=== PATIENT | male | born 1940 | race Caucasian/White ===

== ENCOUNTER 2017-12-12 06:48 | Inpatient (IN) | payer MEDICARE, OTHER ==
[2017-12-12] MEDS: ASPIRIN 325 MG TAB PO (07:38)
[2017-12-12 07:49] LABS: ADD MAN DIFF? NO
[2017-12-12 07:50] LABS: ABNORMAL IP MESSAGE 1; BASOPHILS % 0.1 % (0.0-2.0); EOSINOPHILS % 0.1 % (0.0-7.0); HEMATOCRIT 35.4 % (42.0-52.0); LYMPHOCYTES # 0.6 10^3/ul (0.8-2.9); LYMPHOCYTES % 7.9 % (15.0-51.0); MEAN CORPUSCULAR HEMOGLOBIN 30.6 pg (29.0-33.0); MEAN CORPUSCULAR HGB CONC 31.1 g/dl (32.0-37.0); MEAN CORPUSCULAR VOLUME 98.3 fl (82.0-101.0); MEAN PLATELET VOLUME 9.6 fl (7.4-10.4); MONOCYTE # 0.5 10^3/ul (0.3-0.9); MONOCYTES % 7.5 % (0.0-11.0); PLATELET COUNT 217 10^3/UL (140-415); POSITIVE DIFF @See below; RED CELL DISTRIBUTION WIDTH 20.2 % (11.5-14.5)
[2017-12-12 07:50] LABS: WHITE BLOOD COUNT 7.1 10^3/ul (4.8-10.8)
[2017-12-12] MEDS: ALBUTEROL 0.5% (NEB) 2.5 MG/0.5 ML AMP NEB (07:51)
[2017-12-12] MEDS: IPRATROPIUM (NEB) 0.5 MG/2.5 ML AMP NEB (07:51)
[2017-12-12 08:10] LABS: INR 1.14; PARTIAL THROMBOPLASTIN TIME 37.4 Sec (25.0-35.0); PROTIME 14.8 Sec (11.9-14.9); PT RATIO 1.2
[2017-12-12 08:11] LABS: ALANINE AMINOTRANSFERASE 31 IU/L (13-69); ALBUMIN 3.3 g/dl (3.3-4.9); ALKALINE PHOSPHATASE 82 IU/L (42-121); ANION GAP 14 (8-16); ASPARTATE AMINO TRANSFERASE 39 IU/L (15-46); BILIRUBIN,INDIRECT 0.4 mg/dl (0-1.1); BILIRUBIN,TOTAL 0.4 mg/dl (0.2-1.3); BLOOD UREA NITROGEN 19 mg/dl (7-20); CARBON DIOXIDE 31 mmol/L (21-31); CHLORIDE 108 mmol/L (97-110); CREATINE KINASE 47 IU/L (23-200); CREATININE 0.93 mg/dl (0.61-1.24); GLUCOSE 120 mg/dl (70-220); SODIUM 149 mmol/L (135-144); TOTAL PROTEIN 6.6 g/dl (6.1-8.1)
[2017-12-12 08:23] LABS: B-TYPE NATRIURETIC PEPTIDE 5350 PG/ML (0-450); CK INDEX 1.9
[2017-12-12 08:49] LABS: CK-MB 0.88 ng/ml (0.0-2.4); TROPONIN-I < 0.012 ng/ml (0.00-0.12)
[2017-12-12] MEDS ORDERED: ONDANSETRON 4 MG INJ IV (12:00)
[2017-12-12] MEDS ORDERED: ACETAMINOPHEN 325 MG TAB PO ×2 (12:00→15:00)
[2017-12-12] MEDS: FUROSEMIDE 40 MG INJ IV (12:04)
[2017-12-12] MEDS: METHYLPREDNISOLONE 125 MG INJ IV (13:09)
[2017-12-12 14:49] LABS: HDL CHOLESTEROL 37 mg/dl (31-75); LDL CHOLESTEROL,CALCULATED 64 mg/dl; TRIGLYCERIDES 66 mg/dl (0-149)
[2017-12-12 14:49] LABS: CHOLESTEROL 114 mg/dl (100-200)
[2017-12-12] MEDS ORDERED: FUROSEMIDE 20 MG TAB PO (15:00)
[2017-12-12] MEDS ORDERED: MAGNESIUM HYDROXIDE 30ML CUP PO (15:00)
[2017-12-12] MEDS ORDERED: POLYETHYLENE GLYCOL 17 GM PACKET PO (15:00)
[2017-12-12] MEDS ORDERED: ALBUTEROL HFA 8 GM INHALER INH (15:00)
[2017-12-12] MEDS ORDERED: BISACODYL 10 MG SUPP PR (15:00)
[2017-12-12] MEDS ORDERED: MINERAL OIL 133 ML ENEMA PR (15:00)
[2017-12-12] MEDS ORDERED: NITROGLYCERIN (SL) 0.4 MG TAB SL (16:30)
[2017-12-12] MEDS: CEFEPIME 1GM/50 ML (PMX) 50 ML IVPB ×2 (18:09→21:00)
[2017-12-12] MEDS: METHYLPREDNISOLONE 40 MG INJ IV ×2 (18:09→21:14)
[2017-12-12] MEDS: hydrALAzine 20 MG INJ IV (18:10)
[2017-12-12 18:34] LABS: TROPONIN-I < 0.012 ng/ml (0.00-0.12)
[2017-12-12] MEDS: oxyCODONE 5 MG TAB PO (19:04)
[2017-12-12] MEDS: ALBUTEROL 0.083% (NEB) 2.5 MG/3 ML AMP HHN (19:20)
[2017-12-12] MEDS: METOPROLOL 25 MG TAB PO (20:53)
[2017-12-12] MEDS: TAMSULOSIN (SR) 0.4 MG CAP PO (20:54)
[2017-12-12] MEDS: GABAPENTIN 300 MG CAP PO (21:14)
[2017-12-13 00:59] LABS: TROPONIN-I < 0.012 ng/ml (0.00-0.12)
[2017-12-13] MEDS: ALBUTEROL 0.083% (NEB) 2.5 MG/3 ML AMP HHN ×4 (03:11→20:01)
[2017-12-13] MEDS: oxyCODONE 5 MG TAB PO ×3 (03:16→22:52)
[2017-12-13 03:19] LABS: ALANINE AMINOTRANSFERASE 41 IU/L (13-69); ALBUMIN 4.3 g/dl (3.3-4.9); ALBUMIN/GLOBULIN RATIO 1.53; ALKALINE PHOSPHATASE 123 IU/L (42-121); ANION GAP 18 (8-16); ASPARTATE AMINO TRANSFERASE 28 IU/L (15-46); BILIRUBIN,INDIRECT 0.6 mg/dl (0-1.1); BILIRUBIN,TOTAL 0.6 mg/dl (0.2-1.3); BLOOD UREA NITROGEN 13 mg/dl (7-20); CALCIUM 9.7 mg/dl (8.4-10.2); CARBON DIOXIDE 26 mmol/L (21-31); CHLORIDE 98 mmol/L (97-110); CREATININE 0.79 mg/dl (0.61-1.24); GLUCOSE 203 mg/dl (70-220); POTASSIUM 4.2 mmol/L (3.5-5.1); SODIUM 138 mmol/L (135-144); TOTAL PROTEIN 7.1 g/dl (6.1-8.1)
[2017-12-13] MEDS: hydrALAzine 20 MG INJ IV ×3 (04:22→23:16)
[2017-12-13] MEDS ORDERED: PENDING SANTYL ORDER FOR WOUND CARE XX (05:30)
[2017-12-13 08:21] LABS: CHOLESTEROL 112 mg/dl (100-200)
[2017-12-13 08:21] LABS: CHOL/HDL RATIO 2.6 RATIO; HDL CHOLESTEROL 42 mg/dl (31-75); LDL CHOLESTEROL,CALCULATED 58 mg/dl; TRIGLYCERIDES 62 mg/dl (0-149)
[2017-12-13] MEDS: METHYLPREDNISOLONE 40 MG INJ IV ×2 (08:33→21:03)
[2017-12-13] MEDS: FUROSEMIDE 40 MG INJ IV (08:34)
[2017-12-13] MEDS: CLOPIDOGREL 75 MG TAB PO (08:34)
[2017-12-13] MEDS: FINASTERIDE 5 MG TAB PO (08:34)
[2017-12-13] MEDS: ASCORBIC ACID 500 MG TAB PO (08:34)
[2017-12-13] MEDS: SENNA TAB PO (08:34)
[2017-12-13] MEDS: CEFEPIME 1GM/50 ML (PMX) 50 ML IVPB ×2 (08:35→21:03)
[2017-12-13] MEDS: ASPIRIN 81 MG TAB PO (08:35)
[2017-12-13] MEDS: METOPROLOL 25 MG TAB PO ×2 (08:35→21:05)
[2017-12-13 08:46] LABS: TROPONIN-I < 0.012 ng/ml (0.00-0.12)
[2017-12-13] MEDS: TIOTROPIUM 18 MCG CAPSULE INHA DEV INH (10:55)
[2017-12-13] MEDS: FLUTICASONE 0.05% 16 GM NAS SPRAY NASAL (10:55)
[2017-12-13 17:43] LABS: ADD MAN DIFF? NO
[2017-12-13 17:47] LABS: ABNORMAL IP MESSAGE 1; HEMATOCRIT 31.4 % (42.0-52.0); LYMPHOCYTES # 0.2 10^3/ul (0.8-2.9); MEAN CORPUSCULAR HEMOGLOBIN 30.7 pg (29.0-33.0); MEAN CORPUSCULAR HGB CONC 31.8 g/dl (32.0-37.0); MEAN CORPUSCULAR VOLUME 96.3 fl (82.0-101.0); MEAN PLATELET VOLUME 9.5 fl (7.4-10.4); MONOCYTE # 0.4 10^3/ul (0.3-0.9); MONOCYTES % 5.1 % (0.0-11.0); NEUTROPHIL # 7.2 10^3/ul (1.6-7.5); NEUTROPHILS % 91.4 % (39.0-77.0); PLATELET COUNT 205 10^3/UL (140-415); POSITIVE DIFF @See below; RED BLOOD COUNT 3.26 10^6/ul (4.70-6.10); RED CELL DISTRIBUTION WIDTH 19.8 % (11.5-14.5)
[2017-12-13 17:47] LABS: WHITE BLOOD COUNT 7.9 10^3/ul (4.8-10.8)
[2017-12-13] MEDS: BENAZEPRIL 10 MG TAB PO (21:04)
[2017-12-13] MEDS: GABAPENTIN 300 MG CAP PO (21:04)
[2017-12-13] MEDS: TAMSULOSIN (SR) 0.4 MG CAP PO (21:04)
[2017-12-14] MEDS: ALBUTEROL 0.083% (NEB) 2.5 MG/3 ML AMP HHN ×4 (01:05→19:50)
[2017-12-14] MEDS: hydrALAzine 20 MG INJ IV ×4 (01:58→23:20)
[2017-12-14] MEDS: METOPROLOL 5 MG INJ IV (04:59)
[2017-12-14 08:24] LABS: ADD MAN DIFF? NO
[2017-12-14 08:31] LABS: WHITE BLOOD COUNT 11.2 10^3/ul (4.8-10.8)
[2017-12-14 08:31] LABS: ABNORMAL IP MESSAGE 1; BASOPHILS % 0.1 % (0.0-2.0); HEMATOCRIT 33.2 % (42.0-52.0); HEMOGLOBIN 10.4 g/dl (14.0-18.0); LYMPHOCYTES # 0.4 10^3/ul (0.8-2.9); LYMPHOCYTES % 3.6 % (15.0-51.0); MEAN CORPUSCULAR HEMOGLOBIN 30.7 pg (29.0-33.0); MEAN CORPUSCULAR HGB CONC 31.3 g/dl (32.0-37.0); MEAN CORPUSCULAR VOLUME 97.9 fl (82.0-101.0); MEAN PLATELET VOLUME 9.1 fl (7.4-10.4); MONOCYTE # 0.9 10^3/ul (0.3-0.9); MONOCYTES % 7.9 % (0.0-11.0); NEUTROPHIL # 9.8 10^3/ul (1.6-7.5); NEUTROPHILS % 87.5 % (39.0-77.0); PLATELET COUNT 204 10^3/UL (140-415); POSITIVE DIFF @See below; RED BLOOD COUNT 3.39 10^6/ul (4.70-6.10)
[2017-12-14] MEDS: ASCORBIC ACID 500 MG TAB PO (08:37)
[2017-12-14] MEDS: FINASTERIDE 5 MG TAB PO (08:37)
[2017-12-14] MEDS: SENNA TAB PO (08:37)
[2017-12-14] MEDS: CLOPIDOGREL 75 MG TAB PO (08:37)
[2017-12-14] MEDS: ASPIRIN 81 MG TAB PO (08:37)
[2017-12-14] MEDS: CEFEPIME 1GM/50 ML (PMX) 50 ML IVPB ×2 (08:38→20:26)
[2017-12-14] MEDS: BENAZEPRIL 10 MG TAB PO (08:41)
[2017-12-14] MEDS: TIOTROPIUM 18 MCG CAPSULE INHA DEV INH (08:41)
[2017-12-14] MEDS: METOPROLOL 25 MG TAB PO ×2 (08:41→20:28)
[2017-12-14] MEDS: METHYLPREDNISOLONE 40 MG INJ IV ×2 (08:42→20:25)
[2017-12-14] MEDS: FLUTICASONE 0.05% 16 GM NAS SPRAY NASAL (08:42)
[2017-12-14] MEDS: FUROSEMIDE 40 MG INJ IV (08:42)
[2017-12-14 09:04] LABS: ANION GAP 13 (8-16); BLOOD UREA NITROGEN 21 mg/dl (7-20); CALCIUM 9.1 mg/dl (8.4-10.2); CARBON DIOXIDE 33 mmol/L (21-31); CHLORIDE 104 mmol/L (97-110); CREATININE 0.89 mg/dl (0.61-1.24); GLUCOSE 106 mg/dl (70-220); PHOSPHORUS 3.5 mg/dl (2.5-4.9); POTASSIUM 3.1 mmol/L (3.5-5.1); SODIUM 147 mmol/L (135-144)
[2017-12-14] MEDS: LIDOCAINE 1% (MPF) 5 ML VIAL (17:36)
[2017-12-14 18:50] LABS: FLD MN% 62.8 %; FLD PMN% 37.2 %; FLD RBC 10000 /uL; FLD WBC 140 /cmm
[2017-12-14 19:09] LABS: FLUID LD 186 U/L; FLUID TOTAL PROTEIN < 2.0 g/dl; FLUID TYPE PLEURAL FLUID
[2017-12-14 19:12] LABS: FLUID GLUCOSE 127 mg/dl
[2017-12-14 19:13] LABS: FLUID TYPE PLEURAL FLUID
[2017-12-14 19:25] LABS: FLD TYPE PLEURAL
[2017-12-14 19:25] LABS: FLD CLARITY SLIGHTLY HAZY
[2017-12-14 19:26] LABS: FLD COLOR AMBER
[2017-12-14] MEDS: TAMSULOSIN (SR) 0.4 MG CAP PO (20:26)
[2017-12-14] MEDS: oxyCODONE 5 MG TAB PO (20:27)
[2017-12-14] MEDS: GABAPENTIN 300 MG CAP PO (20:28)
[2017-12-14] MEDS: BENAZEPRIL 20 MG TAB PO (20:28)
[2017-12-15] MEDS: ALBUTEROL 0.083% (NEB) 2.5 MG/3 ML AMP HHN ×4 (01:54→20:54)
[2017-12-15 08:07] LABS: ADD MAN DIFF? NO
[2017-12-15 08:14] LABS: WHITE BLOOD COUNT 10.3 10^3/ul (4.8-10.8)
[2017-12-15 08:14] LABS: ABNORMAL IP MESSAGE 1; BASOPHILS % 0.1 % (0.0-2.0); HEMATOCRIT 36.3 % (42.0-52.0); HEMOGLOBIN 11.5 g/dl (14.0-18.0); LYMPHOCYTES # 0.4 10^3/ul (0.8-2.9); LYMPHOCYTES % 3.5 % (15.0-51.0); MEAN CORPUSCULAR HEMOGLOBIN 30.4 pg (29.0-33.0); MEAN CORPUSCULAR HGB CONC 31.7 g/dl (32.0-37.0); MEAN PLATELET VOLUME 9.9 fl (7.4-10.4); MONOCYTE # 0.7 10^3/ul (0.3-0.9); MONOCYTES % 6.5 % (0.0-11.0); NEUTROPHIL # 9.2 10^3/ul (1.6-7.5); NEUTROPHILS % 89.1 % (39.0-77.0); PLATELET COUNT 191 10^3/UL (140-415); POSITIVE DIFF @See below; RED BLOOD COUNT 3.78 10^6/ul (4.70-6.10); RED CELL DISTRIBUTION WIDTH 19.7 % (11.5-14.5)
[2017-12-15 08:31] LABS: BLOOD UREA NITROGEN 29 mg/dl (7-20); CALCIUM 8.4 mg/dl (8.4-10.2); CARBON DIOXIDE 34 mmol/L (21-31); CHLORIDE 102 mmol/L (97-110); CREATININE 1.01 mg/dl (0.61-1.24); GLUCOSE 108 mg/dl (70-220); SODIUM 144 mmol/L (135-144)
[2017-12-15] MEDS: FLUTICASONE 0.05% 16 GM NAS SPRAY NASAL (08:46)
[2017-12-15] MEDS: ASPIRIN 81 MG TAB PO (08:47)
[2017-12-15] MEDS: CLOPIDOGREL 75 MG TAB PO (08:47)
[2017-12-15] MEDS: SENNA TAB PO (08:47)
[2017-12-15] MEDS: ASCORBIC ACID 500 MG TAB PO (08:47)
[2017-12-15] MEDS: FINASTERIDE 5 MG TAB PO (08:47)
[2017-12-15] MEDS: METHYLPREDNISOLONE 40 MG INJ IV ×2 (08:47→20:30)
[2017-12-15] MEDS: TIOTROPIUM 18 MCG CAPSULE INHA DEV INH (08:47)
[2017-12-15] MEDS: FUROSEMIDE 40 MG INJ IV (08:48)
[2017-12-15] MEDS: BENAZEPRIL 20 MG TAB PO ×2 (08:48→20:28)
[2017-12-15] MEDS: METOPROLOL 25 MG TAB PO ×2 (08:48→20:29)
[2017-12-15] MEDS: CEFEPIME 1GM/50 ML (PMX) 50 ML IVPB ×2 (09:04→20:30)
[2017-12-15 09:37] LABS: ANION GAP 11 (8-16)
[2017-12-15 09:38] LABS: POTASSIUM 3.1 mmol/L (3.5-5.1)
[2017-12-15] MEDS: hydrALAzine 20 MG INJ IV (13:08)
[2017-12-15] MEDS: POTASSIUM CHLORIDE 20 MEQ POWDER FOR ORAL SOLN PO (18:24)
[2017-12-15] MEDS: TAMSULOSIN (SR) 0.4 MG CAP PO (20:28)
[2017-12-15] MEDS: GABAPENTIN 300 MG CAP PO (20:28)
[2017-12-15] MEDS: oxyCODONE 5 MG TAB PO (20:42)
[2017-12-16] MEDS: ALBUTEROL 0.083% (NEB) 2.5 MG/3 ML AMP HHN ×4 (02:02→22:20)
[2017-12-16] MEDS: CEFEPIME 1GM/50 ML (PMX) 50 ML IVPB ×2 (08:10→20:38)
[2017-12-16 08:11] LABS: ADD MAN DIFF? NO
[2017-12-16] MEDS: METHYLPREDNISOLONE 40 MG INJ IV (08:11)
[2017-12-16 08:12] LABS: AADO2 Arterial 318.8 mmHg (7.0-24.0); Allen Test ACCEPTAB; Arterial Base Excess 8.7 mmol/L (-3.0-3); Arterial Blood Gas Oxygen Sat 88.3 mmHG (95.0-100.0); Arterial COHb 0.5 % (0.0-3.0); Arterial Fraction of Oxyhgb 87.6 % (93.0-99.0); Arterial MetHb 0.3 % (0.0-1.5); Arterial Total Hemglobin 11.7 g/dl (12.0-18.0); Arterial pCO2 50.1 mmhg (35-45); MODE HFNC; Site Right Radial
[2017-12-16] MEDS: ASPIRIN 81 MG TAB PO (08:12)
[2017-12-16] MEDS: METOPROLOL 25 MG TAB PO (08:12)
[2017-12-16] MEDS: ASCORBIC ACID 500 MG TAB PO (08:12)
[2017-12-16] MEDS: FINASTERIDE 5 MG TAB PO (08:12)
[2017-12-16] MEDS: FUROSEMIDE 40 MG INJ IV (08:12)
[2017-12-16] MEDS: SENNA TAB PO (08:12)
[2017-12-16] MEDS: CLOPIDOGREL 75 MG TAB PO (08:12)
[2017-12-16] MEDS: TIOTROPIUM 18 MCG CAPSULE INHA DEV INH (08:12)
[2017-12-16] MEDS: BENAZEPRIL 20 MG TAB PO (08:13)
[2017-12-16] MEDS: FLUTICASONE 0.05% 16 GM NAS SPRAY NASAL (08:13)
[2017-12-16 08:23] LABS: ABNORMAL IP MESSAGE 1; HEMATOCRIT 32.7 % (42.0-52.0); HEMOGLOBIN 10.5 g/dl (14.0-18.0); LYMPHOCYTES # 0.3 10^3/ul (0.8-2.9); LYMPHOCYTES % 2.8 % (15.0-51.0); MEAN CORPUSCULAR HGB CONC 32.1 g/dl (32.0-37.0); MEAN CORPUSCULAR VOLUME 96.5 fl (82.0-101.0); MEAN PLATELET VOLUME 9.6 fl (7.4-10.4); MONOCYTE # 0.6 10^3/ul (0.3-0.9); MONOCYTES % 5.9 % (0.0-11.0); NEUTROPHIL # 9.2 10^3/ul (1.6-7.5); NEUTROPHILS % 90.7 % (39.0-77.0); PLATELET COUNT 142 10^3/UL (140-415); POSITIVE DIFF @See below; RED BLOOD COUNT 3.39 10^6/ul (4.70-6.10); RED CELL DISTRIBUTION WIDTH 19.2 % (11.5-14.5)
[2017-12-16 08:23] LABS: WHITE BLOOD COUNT 10.2 10^3/ul (4.8-10.8)
[2017-12-16 08:55] LABS: ANION GAP 13 (8-16); BLOOD UREA NITROGEN 34 mg/dl (7-20); CALCIUM 8.4 mg/dl (8.4-10.2); CARBON DIOXIDE 33 mmol/L (21-31); CHLORIDE 102 mmol/L (97-110); CREATININE 1.05 mg/dl (0.61-1.24); GLUCOSE 131 mg/dl (70-220); MAGNESIUM 2.1 mg/dl (1.7-2.5); PHOSPHORUS 2.5 mg/dl (2.5-4.9); POTASSIUM 3.5 mmol/L (3.5-5.1); SODIUM 144 mmol/L (135-144)
[2017-12-16] MEDS: hydrALAzine 20 MG INJ IV ×2 (11:29→17:43)
[2017-12-16] MEDS: TAMSULOSIN (SR) 0.4 MG CAP PO (20:38)
[2017-12-16] MEDS: BENAZEPRIL 40 MG TAB PO (20:38)
[2017-12-16] MEDS: METOPROLOL 50 MG TAB PO (20:39)
[2017-12-16] MEDS: GABAPENTIN 300 MG CAP PO (20:39)
[2017-12-16] MEDS ORDERED: METOPROLOL 25 MG TAB PO (21:00)
[2017-12-16] MEDS ORDERED: BENAZEPRIL 20 MG TAB PO (21:00)
[2017-12-17] MEDS: ALBUTEROL 0.083% (NEB) 2.5 MG/3 ML AMP HHN ×4 (01:09→19:48)
[2017-12-17] MEDS: oxyCODONE 5 MG TAB PO ×2 (03:52→23:38)
[2017-12-17] MEDS: hydrALAzine 20 MG INJ IV (03:57)
[2017-12-17 08:18] LABS: ADD MAN DIFF? NO
[2017-12-17 08:20] LABS: WHITE BLOOD COUNT 12.7 10^3/ul (4.8-10.8)
[2017-12-17 08:20] LABS: BASOPHILS % 0.2 % (0.0-2.0); EOSINOPHILS % 0.2 % (0.0-7.0); HEMATOCRIT 35.7 % (42.0-52.0); HEMOGLOBIN 11.3 g/dl (14.0-18.0); LYMPHOCYTES # 0.6 10^3/ul (0.8-2.9); LYMPHOCYTES % 4.9 % (15.0-51.0); MEAN CORPUSCULAR HEMOGLOBIN 30.5 pg (29.0-33.0); MEAN CORPUSCULAR HGB CONC 31.7 g/dl (32.0-37.0); MEAN CORPUSCULAR VOLUME 96.5 fl (82.0-101.0); MEAN PLATELET VOLUME 9.5 fl (7.4-10.4); NEUTROPHIL # 10.9 10^3/ul (1.6-7.5); NEUTROPHILS % 85.7 % (39.0-77.0); PLATELET COUNT 130 10^3/UL (140-415); RED CELL DISTRIBUTION WIDTH 19.2 % (11.5-14.5)
[2017-12-17] MEDS: FINASTERIDE 5 MG TAB PO (08:34)
[2017-12-17] MEDS: ASCORBIC ACID 500 MG TAB PO (08:34)
[2017-12-17] MEDS: TIOTROPIUM 18 MCG CAPSULE INHA DEV INH (08:34)
[2017-12-17] MEDS: FUROSEMIDE 40 MG INJ IV (08:34)
[2017-12-17] MEDS: CLOPIDOGREL 75 MG TAB PO (08:35)
[2017-12-17] MEDS: CEFEPIME 1GM/50 ML (PMX) 50 ML IVPB ×2 (08:35→21:47)
[2017-12-17] MEDS: BENAZEPRIL 40 MG TAB PO ×2 (08:35→21:47)
[2017-12-17] MEDS: FLUTICASONE 0.05% 16 GM NAS SPRAY NASAL (08:36)
[2017-12-17] MEDS: ASPIRIN 81 MG TAB PO (08:36)
[2017-12-17] MEDS: SENNA TAB PO (08:37)
[2017-12-17 08:39] LABS: ANION GAP 11 (8-16); BLOOD UREA NITROGEN 35 mg/dl (7-20); CALCIUM 8.4 mg/dl (8.4-10.2); CARBON DIOXIDE 36 mmol/L (21-31); CHLORIDE 102 mmol/L (97-110); CREATININE 0.96 mg/dl (0.61-1.24); GLUCOSE 94 mg/dl (70-220); POTASSIUM 3.2 mmol/L (3.5-5.1); SODIUM 146 mmol/L (135-144)
[2017-12-17] MEDS: METOPROLOL 50 MG TAB PO ×2 (08:40→21:47)
[2017-12-17] MEDS: LIDOCAINE 1% (MPF) 5 ML VIAL (10:56)
[2017-12-17] MEDS ORDERED: VANCOMYCIN IV PER PHARMACY XX ×2 (11:00)
[2017-12-17] MEDS: VANCOMYCIN 1.25 GM in SOD CHLORIDE 0.9% 250 ML IVPB (12:54)
[2017-12-17] MEDS: POTASSIUM CHLORIDE (SR) 20 MEQ TAB PO (17:12)
[2017-12-17] MEDS: TAMSULOSIN (SR) 0.4 MG CAP PO (21:47)
[2017-12-17] MEDS: GABAPENTIN 300 MG CAP PO (21:48)
[2017-12-18] MEDS: ALBUTEROL 0.083% (NEB) 2.5 MG/3 ML AMP HHN ×4 (01:52→19:56)
[2017-12-18 06:39] LABS: ADD MAN DIFF? NO
[2017-12-18 06:41] LABS: ABNORMAL IP MESSAGE 1; BASOPHILS % 0.1 % (0.0-2.0); EOSINOPHILS % 0.5 % (0.0-7.0); HEMATOCRIT 31.5 % (42.0-52.0); HEMOGLOBIN 10.1 g/dl (14.0-18.0); LYMPHOCYTES # 0.6 10^3/ul (0.8-2.9); LYMPHOCYTES % 6.3 % (15.0-51.0); MEAN CORPUSCULAR HEMOGLOBIN 31.2 pg (29.0-33.0); MEAN CORPUSCULAR HGB CONC 32.1 g/dl (32.0-37.0); MEAN CORPUSCULAR VOLUME 97.2 fl (82.0-101.0); MEAN PLATELET VOLUME 9.3 fl (7.4-10.4); MONOCYTE # 0.7 10^3/ul (0.3-0.9); MONOCYTES % 8.1 % (0.0-11.0); NEUTROPHIL # 7.4 10^3/ul (1.6-7.5); PLATELET COUNT 106 10^3/UL (140-415); POSITIVE DIFF @See below; RED BLOOD COUNT 3.24 10^6/ul (4.70-6.10); RED CELL DISTRIBUTION WIDTH 18.8 % (11.5-14.5)
[2017-12-18 06:41] LABS: WHITE BLOOD COUNT 8.8 10^3/ul (4.8-10.8)
[2017-12-18 07:09] LABS: ANION GAP 10 (8-16); BLOOD UREA NITROGEN 29 mg/dl (7-20); CALCIUM 7.8 mg/dl (8.4-10.2); CARBON DIOXIDE 38 mmol/L (21-31); CHLORIDE 101 mmol/L (97-110); CREATININE 0.86 mg/dl (0.61-1.24); GLUCOSE 97 mg/dl (70-220); PHOSPHORUS 2.1 mg/dl (2.5-4.9); SODIUM 146 mmol/L (135-144)
[2017-12-18 07:14] LABS: POTASSIUM 2.9 mmol/L (3.5-5.1)
[2017-12-18 07:58] LABS: AADO2 Arterial 277.5 mmHg (7.0-24.0); Allen Test ACCEPTAB; Arterial Base Excess 7.7 mmol/L (-3.0-3); Arterial COHb 0.5 % (0.0-3.0); Arterial Fraction of Oxyhgb 91.3 % (93.0-99.0); Arterial HCO3 32.6 mmol/L (22.0-26.0); Arterial MetHb 0.3 % (0.0-1.5); Arterial Total Hemglobin 11.4 g/dl (12.0-18.0); Arterial pCO2 47.5 mmhg (35-45); MODE HFNC; Site Right Radial
[2017-12-18] MEDS: FINASTERIDE 5 MG TAB PO (08:30)
[2017-12-18] MEDS: CEFEPIME 1GM/50 ML (PMX) 50 ML IVPB ×2 (08:30→23:41)
[2017-12-18] MEDS: SENNA TAB PO (08:31)
[2017-12-18] MEDS: ASPIRIN 81 MG TAB PO (08:31)
[2017-12-18] MEDS: POTASSIUM CHLORIDE (SR) 10 MEQ TAB PO ×2 (08:31→11:35)
[2017-12-18] MEDS: CLOPIDOGREL 75 MG TAB PO (08:31)
[2017-12-18] MEDS: METOPROLOL 50 MG TAB PO ×2 (08:32→21:00)
[2017-12-18] MEDS: BENAZEPRIL 40 MG TAB PO ×2 (08:32→23:45)
[2017-12-18] MEDS: NIFEdipine (XL) 30 MG TAB PO (08:33)
[2017-12-18] MEDS: ASCORBIC ACID 500 MG TAB PO (08:33)
[2017-12-18] MEDS: FUROSEMIDE 40 MG INJ IV (08:33)
[2017-12-18] MEDS: FLUTICASONE 0.05% 16 GM NAS SPRAY NASAL (08:34)
[2017-12-18] MEDS: TIOTROPIUM 18 MCG CAPSULE INHA DEV INH ×2 (09:00→11:36)
[2017-12-18] MEDS: VANCOMYCIN 1.25 GM in SOD CHLORIDE 0.9% 250 ML IVPB (12:11)
[2017-12-18] MEDS ORDERED: POTASSIUM CHLORIDE 50 ML IVPB (15:30)
[2017-12-18] MEDS: GABAPENTIN 300 MG CAP PO (23:40)
[2017-12-18] MEDS: TAMSULOSIN (SR) 0.4 MG CAP PO (23:41)
[2017-12-18] MEDS: oxyCODONE 5 MG TAB PO (23:42)
[2017-12-19] MEDS: ALBUTEROL 0.083% (NEB) 2.5 MG/3 ML AMP HHN ×4 (01:58→20:28)
[2017-12-19 06:59] LABS: ADD MAN DIFF? NO
[2017-12-19 07:03] LABS: WHITE BLOOD COUNT 9.2 10^3/ul (4.8-10.8)
[2017-12-19 07:03] LABS: BASOPHILS % 0.1 % (0.0-2.0); EOSINOPHILS # 0.1 10^3/ul (0.0-0.5); HEMATOCRIT 30.9 % (42.0-52.0); HEMOGLOBIN 9.6 g/dl (14.0-18.0); LYMPHOCYTES # 0.7 10^3/ul (0.8-2.9); LYMPHOCYTES % 7.8 % (15.0-51.0); MEAN CORPUSCULAR HEMOGLOBIN 30.7 pg (29.0-33.0); MEAN CORPUSCULAR HGB CONC 31.1 g/dl (32.0-37.0); MEAN CORPUSCULAR VOLUME 98.7 fl (82.0-101.0); MEAN PLATELET VOLUME 9.7 fl (7.4-10.4); MONOCYTE # 0.8 10^3/ul (0.3-0.9); MONOCYTES % 8.6 % (0.0-11.0); NEUTROPHIL # 7.5 10^3/ul (1.6-7.5); NEUTROPHILS % 81.7 % (39.0-77.0); PLATELET COUNT 104 10^3/UL (140-415); RED BLOOD COUNT 3.13 10^6/ul (4.70-6.10); RED CELL DISTRIBUTION WIDTH 18.8 % (11.5-14.5)
[2017-12-19 07:23] LABS: POTASSIUM 3.5 mmol/L (3.5-5.1)
[2017-12-19 07:31] LABS: ANION GAP 11 (8-16); BLOOD UREA NITROGEN 28 mg/dl (7-20); CALCIUM 7.7 mg/dl (8.4-10.2); CARBON DIOXIDE 34 mmol/L (21-31); CHLORIDE 103 mmol/L (97-110); CREATININE 0.92 mg/dl (0.61-1.24); GLUCOSE 108 mg/dl (70-220); POTASSIUM 3.4 mmol/L (3.5-5.1); SODIUM 145 mmol/L (135-144)
[2017-12-19] MEDS: BENAZEPRIL 40 MG TAB PO ×2 (08:38→21:03)
[2017-12-19] MEDS: NIFEdipine (XL) 30 MG TAB PO (08:39)
[2017-12-19] MEDS: CLOPIDOGREL 75 MG TAB PO (08:40)
[2017-12-19] MEDS: ASCORBIC ACID 500 MG TAB PO (08:40)
[2017-12-19] MEDS: SENNA TAB PO (08:40)
[2017-12-19] MEDS: ASPIRIN 81 MG TAB PO (08:40)
[2017-12-19] MEDS: FINASTERIDE 5 MG TAB PO (08:40)
[2017-12-19] MEDS: METOPROLOL 50 MG TAB PO ×2 (08:41→21:00)
[2017-12-19] MEDS: TIOTROPIUM 18 MCG CAPSULE INHA DEV INH (08:41)
[2017-12-19] MEDS: CEFEPIME 1GM/50 ML (PMX) 50 ML IVPB ×2 (08:42→21:03)
[2017-12-19] MEDS: FLUTICASONE 0.05% 16 GM NAS SPRAY NASAL (08:42)
[2017-12-19] MEDS: FUROSEMIDE 40 MG INJ IV (08:43)
[2017-12-19] MEDS: VANCOMYCIN 1.25 GM in SOD CHLORIDE 0.9% 250 ML IVPB (13:40)
[2017-12-19] MEDS: TAMSULOSIN (SR) 0.4 MG CAP PO (21:02)
[2017-12-19] MEDS: GABAPENTIN 300 MG CAP PO (21:02)
[2017-12-19] MEDS: oxyCODONE 5 MG TAB PO (21:10)
[2017-12-19] MEDS: POTASSIUM CHLORIDE 100 ML IVPB (23:40)
[2017-12-20] MEDS: ALBUTEROL 0.083% (NEB) 2.5 MG/3 ML AMP HHN ×4 (01:45→20:34)
[2017-12-20 06:26] LABS: POTASSIUM 3.4 mmol/L (3.5-5.1)
[2017-12-20] MEDS: TIOTROPIUM 18 MCG CAPSULE INHA DEV INH (08:23)
[2017-12-20] MEDS: ASCORBIC ACID 500 MG TAB PO (08:24)
[2017-12-20] MEDS: CEFEPIME 1GM/50 ML (PMX) 50 ML IVPB ×2 (08:24→21:28)
[2017-12-20] MEDS: FLUTICASONE 0.05% 16 GM NAS SPRAY NASAL (08:24)
[2017-12-20] MEDS: FINASTERIDE 5 MG TAB PO (08:24)
[2017-12-20] MEDS: SENNA TAB PO (08:25)
[2017-12-20] MEDS: CLOPIDOGREL 75 MG TAB PO (08:25)
[2017-12-20] MEDS: ASPIRIN 81 MG TAB PO (08:25)
[2017-12-20] MEDS: NIFEdipine (XL) 30 MG TAB PO (08:26)
[2017-12-20] MEDS: METOPROLOL 50 MG TAB PO ×2 (08:26→21:29)
[2017-12-20] MEDS: BENAZEPRIL 40 MG TAB PO ×2 (08:26→21:29)
[2017-12-20] MEDS: FUROSEMIDE 40 MG INJ IV (08:27)
[2017-12-20 12:50] LABS: VANCOMYCIN,TROUGH 16.6 ug/ml (10.0-20.0)
[2017-12-20] MEDS: VANCOMYCIN 1.25 GM in SOD CHLORIDE 0.9% 250 ML IVPB (13:31)
[2017-12-20] MEDS: GABAPENTIN 300 MG CAP PO (21:28)
[2017-12-20] MEDS: TAMSULOSIN (SR) 0.4 MG CAP PO (21:28)
[2017-12-20] MEDS: oxyCODONE 5 MG TAB PO (23:06)
[2017-12-21] MEDS: ALBUTEROL 0.083% (NEB) 2.5 MG/3 ML AMP HHN ×4 (02:02→20:54)
[2017-12-21] MEDS: POTASSIUM CHLORIDE 100 ML IVPB (02:58)
[2017-12-21 08:58] LABS: ADD MAN DIFF? NO
[2017-12-21 09:05] LABS: ABNORMAL IP MESSAGE 1; BASOPHILS % 0.1 % (0.0-2.0); EOSINOPHILS # 0.1 10^3/ul (0.0-0.5); EOSINOPHILS % 1.3 % (0.0-7.0); HEMATOCRIT 29.8 % (42.0-52.0); HEMOGLOBIN 9.2 g/dl (14.0-18.0); LYMPHOCYTES # 0.7 10^3/ul (0.8-2.9); MEAN CORPUSCULAR HEMOGLOBIN 30.6 pg (29.0-33.0); MEAN CORPUSCULAR HGB CONC 30.9 g/dl (32.0-37.0); MEAN PLATELET VOLUME 10.1 fl (7.4-10.4); MONOCYTE # 0.9 10^3/ul (0.3-0.9); MONOCYTES % 11.3 % (0.0-11.0); NEUTROPHILS % 77.5 % (39.0-77.0); PLATELET COUNT 99 10^3/UL (140-415); POSITIVE DIFF @See below; RED BLOOD COUNT 3.01 10^6/ul (4.70-6.10); RED CELL DISTRIBUTION WIDTH 18.6 % (11.5-14.5)
[2017-12-21 09:05] LABS: WHITE BLOOD COUNT 7.7 10^3/ul (4.8-10.8)
[2017-12-21] MEDS: TIOTROPIUM 18 MCG CAPSULE INHA DEV INH (09:15)
[2017-12-21] MEDS: CEFEPIME 1GM/50 ML (PMX) 50 ML IVPB ×2 (09:15→20:18)
[2017-12-21] MEDS: SENNA TAB PO (09:16)
[2017-12-21] MEDS: FUROSEMIDE 40 MG INJ IV (09:16)
[2017-12-21] MEDS: METOPROLOL 50 MG TAB PO ×2 (09:17→20:19)
[2017-12-21] MEDS: ASCORBIC ACID 500 MG TAB PO (09:17)
[2017-12-21] MEDS: BENAZEPRIL 40 MG TAB PO ×2 (09:17→20:19)
[2017-12-21] MEDS: NIFEdipine (XL) 30 MG TAB PO (09:18)
[2017-12-21] MEDS: CLOPIDOGREL 75 MG TAB PO (09:18)
[2017-12-21] MEDS: FINASTERIDE 5 MG TAB PO (09:18)
[2017-12-21] MEDS: ASPIRIN 81 MG TAB PO (09:18)
[2017-12-21] MEDS: FLUTICASONE 0.05% 16 GM NAS SPRAY NASAL (09:19)
[2017-12-21 09:23] LABS: ANION GAP 12 (8-16); BLOOD UREA NITROGEN 23 mg/dl (7-20); CALCIUM 7.7 mg/dl (8.4-10.2); CARBON DIOXIDE 32 mmol/L (21-31); CHLORIDE 106 mmol/L (97-110); CREATININE 0.98 mg/dl (0.61-1.24); GLUCOSE 88 mg/dl (70-220); POTASSIUM 3.5 mmol/L (3.5-5.1); SODIUM 146 mmol/L (135-144)
[2017-12-21] MEDS: VANCOMYCIN 1 GM 250 ML IVPB (12:31)
[2017-12-21] MEDS: GABAPENTIN 300 MG CAP PO (20:19)
[2017-12-21] MEDS: TAMSULOSIN (SR) 0.4 MG CAP PO (20:19)
[2017-12-21] MEDS: DOCUSATE SODIUM 100 MG CAP PO (20:20)
[2017-12-21] MEDS: oxyCODONE 5 MG TAB PO (21:35)
[2017-12-22] MEDS: ALBUTEROL 0.083% (NEB) 2.5 MG/3 ML AMP HHN ×3 (01:15→13:54)
[2017-12-22] MEDS: oxyCODONE 5 MG TAB PO (04:18)
[2017-12-22 08:18] LABS: POTASSIUM 3.8 mmol/L (3.5-5.1)
[2017-12-22] MEDS: ASPIRIN 81 MG TAB PO (08:33)
[2017-12-22] MEDS: CLOPIDOGREL 75 MG TAB PO (08:36)
[2017-12-22] MEDS: FINASTERIDE 5 MG TAB PO (08:37)
[2017-12-22] MEDS: BENAZEPRIL 40 MG TAB PO (08:41)
[2017-12-22] MEDS: NIFEdipine (XL) 30 MG TAB PO (08:41)
[2017-12-22] MEDS: ASCORBIC ACID 500 MG TAB PO (08:42)
[2017-12-22] MEDS: SENNA TAB PO (08:42)
[2017-12-22] MEDS: TIOTROPIUM 18 MCG CAPSULE INHA DEV INH (08:43)
[2017-12-22] MEDS: CEFEPIME 1GM/50 ML (PMX) 50 ML IVPB (08:43)
[2017-12-22] MEDS: FLUTICASONE 0.05% 16 GM NAS SPRAY NASAL (08:46)
[2017-12-22] MEDS: METOPROLOL 50 MG TAB PO (08:52)
[2017-12-22] MEDS: FUROSEMIDE 40 MG INJ IV (08:58)
[2017-12-22] MEDS: VANCOMYCIN 1 GM 250 ML IVPB (13:46)
== END 2017-12-22 18:00 | DRG 186 ==
LOC: TEL 11:51 → E/R 06:48
PROC: 0W9B3ZX Drainage of Left Pleural Cavity, Percutaneous Approach, Diagnostic (ICD-10-PCS; principal; 2017-12-14)
PROC: 0W9B3ZZ Drainage of Left Pleural Cavity, Percutaneous Approach (ICD-10-PCS; 2017-12-17)
DX: J90 Pleural effusion, not elsewhere classified (principal); J96.21 Acute and chronic respiratory failure with hypoxia; I50.9 Heart failure, unspecified; I11.0 Hypertensive heart disease with heart failure; J18.9 Pneumonia, unspecified organism; I48.91 Unspecified atrial fibrillation; D64.9 Anemia, unspecified; J96.22 Acute and chronic respiratory failure with hypercapnia; J44.1 Chronic obstructive pulmonary disease with (acute) exacerbation; N40.0 Benign prostatic hyperplasia without lower urinary tract symptoms; Z66 Do not resuscitate; Z87.891 Personal history of nicotine dependence; Z85.038 Personal history of other malignant neoplasm of large intestine; Z85.118 Personal history of other malignant neoplasm of bronchus and lung; Z92.3 Personal history of irradiation; Z92.21 Personal history of antineoplastic chemotherapy; Z79.02 Long term (current) use of antithrombotics/antiplatelets; Z79.82 Long term (current) use of aspirin
CPT/HCPCS: 32555; 36600; 71045; 76942; 80048; 80053; 80061; 80202; 82550; 82553; 82803; 82945; 83615; 83735; 83880; 84100; 84132; 84157; 84443; 84484; 85025; 85610; 85730; 87070; 87081; 87102; 87116; 88104; 88305; 88313; 89051; 93005; 93306; 94640; 94644; 94660; 94664; 96365; 96366; 96375; 96376; 99285-25

== ENCOUNTER 2018-01-09 16:28 | Inpatient (IN) | payer MEDICARE, OTHER ==
[2018-01-09 17:23] LABS: WHITE BLOOD COUNT 6.3 10^3/ul (4.8-10.8)
[2018-01-09 17:23] LABS: ABNORMAL IP MESSAGE 1; HEMATOCRIT 33.6 % (42.0-52.0); HEMOGLOBIN 10.4 g/dl (14.0-18.0); MEAN CORPUSCULAR HEMOGLOBIN 29.8 pg (29.0-33.0); MEAN CORPUSCULAR VOLUME 96.3 fl (82.0-101.0); MEAN PLATELET VOLUME 10.4 fl (7.4-10.4); PLATELET COUNT 214 10^3/UL (140-415); POSITIVE DIFF @See below; RED BLOOD COUNT 3.49 10^6/ul (4.70-6.10); RED CELL DISTRIBUTION WIDTH 17.2 % (11.5-14.5)
[2018-01-09] MEDS: METHYLPREDNISOLONE 125 MG INJ IV ×2 (17:29→23:26)
[2018-01-09] MEDS: CEFEPIME 2GM/50 ML (PMX) 50 ML IVPB (17:30)
[2018-01-09] MEDS: SODIUM CHLORIDE 0.9% 1L BAG IV* (17:31)
[2018-01-09 17:32] LABS: ADD MAN DIFF? YES
[2018-01-09 17:38] LABS: INR 1.31; PROTIME 16.5 Sec (11.9-14.9); PT RATIO 1.3
[2018-01-09 17:41] LABS: LACTIC ACID 1.6 mmol/L (0.5-2.0)
[2018-01-09 17:43] LABS: ALANINE AMINOTRANSFERASE 31 IU/L (13-69); ALBUMIN 3.2 g/dl (3.3-4.9); ALBUMIN/GLOBULIN RATIO 0.86; ALKALINE PHOSPHATASE 87 IU/L (42-121); ANION GAP 16 (8-16); ASPARTATE AMINO TRANSFERASE 93 IU/L (15-46); BILIRUBIN,INDIRECT 0.3 mg/dl (0-1.1); BILIRUBIN,TOTAL 0.3 mg/dl (0.2-1.3); BLOOD UREA NITROGEN 38 mg/dl (7-20); CALCIUM 8.7 mg/dl (8.4-10.2); CARBON DIOXIDE 32 mmol/L (21-31); CHLORIDE 103 mmol/L (97-110); GLUCOSE 164 mg/dl (70-220); POTASSIUM 4.6 mmol/L (3.5-5.1); SODIUM 146 mmol/L (135-144); TOTAL PROTEIN 6.9 g/dl (6.1-8.1)
[2018-01-09 17:46] LABS: ADD UMIC YES; UR ASCORBIC ACID 40 mg/dL (NEGATIVE); UR BILIRUBIN (Dip) NEGATIVE (NEGATIVE); UR BLOOD (Dip) NEGATIVE (NEGATIVE); UR CLARITY SLIGHTLY CLOUDY (CLEAR); UR COLOR YELLOW (YELLOW); UR GLUCOSE (Dip) NEGATIVE (NEGATIVE); UR KETONES (Dip) NEGATIVE (NEGATIVE); UR LEUKOCYTE ESTERASE (Dip) NEGATIVE Leu/ul (NEGATIVE); UR MUCUS FEW /HPF (NONE SEEN); UR NITRITE (Dip) NEGATIVE (NEGATIVE); UR RBC 0 /HPF (0-5); UR SPECIFIC GRAVITY (Dip) 1.014 (1.003-1.030); UR SQUAMOUS EPITHELIAL CELL FEW /HPF (FEW); UR TOTAL PROTEIN (Dip) 1+ mg/dl (NEGATIVE); UR UROBILINOGEN (Dip) NEGATIVE (NEGATIVE); UR WBC 4 /HPF (0-5)
[2018-01-09 17:55] LABS: TROPONIN-I < 0.012 ng/ml (0.00-0.12)
[2018-01-09] MEDS: IPRATROPIUM (NEB) 0.5 MG/2.5 ML AMP INH (18:21)
[2018-01-09] MEDS: ALBUTEROL 0.5% (NEB) 2.5 MG/0.5 ML AMP INH ×2 (18:22→20:14)
[2018-01-09 18:27] LABS: ANISOCYTOSIS 1+ (0-0); BAND NEUTROPHILS #M 1.5 10^3/ul (0.0-0.6); BAND NEUTROPHILS % (M) 25 % (0-4); EOSINOPHILS % (M) 4 % (0-7); GIANT THROMBO% (M) 2 % (0-0); LYMPHOCYTES #M 0.8 10^3/ul (0.8-2.9); LYMPHOCYTES % (M) 13 % (15-51); MONOCYTE #M 0.3 10^3/ul (0.3-0.9); MONOCYTES % (M) 6 % (0-11); PLATELET ESTIMATE NORMAL; POIKILOCYTOSIS 1+ (0-0); POLYCHROMASIA 3+ (0-0); SEG NEUT #M 3.4 10^3/ul (1.6-7.5); SEGMENTED NEUTROPHILS (M) % 52 % (39-77); SMUDGE%M 7 % (0-0)
[2018-01-09] MEDS: VANCOMYCIN 1 GM (PMX) 250 ML IVPB (18:38)
[2018-01-09 19:37] LABS: LACTIC ACID 1.3 mmol/L (0.5-2.0)
[2018-01-09] MEDS ORDERED: ALBUTEROL 0.083% (NEB) 2.5 MG/3 ML AMP HHN (21:00)
[2018-01-09] MEDS ORDERED: NACL 0.9% 3 ML SYG IV (21:00)
[2018-01-09] MEDS ORDERED: ACETAMINOPHEN 325 MG TAB PO (21:30)
[2018-01-09] MEDS ORDERED: ONDANSETRON 4 MG INJ IV (21:30)
[2018-01-09 21:53] LABS: LACTIC ACID 1.7 mmol/L (0.5-2.0)
[2018-01-09] MEDS: FAMOTIDINE 20 MG INJ IV (22:01)
[2018-01-09] MEDS: ONDANSETRON 4 MG INJ IV (22:01)
[2018-01-09] MEDS: morphine 2 MG INJ IV (22:01)
[2018-01-10] MEDS: METHYLPREDNISOLONE 125 MG INJ IV ×3 (06:47→17:10)
[2018-01-10] MEDS: FAMOTIDINE 20 MG INJ IV (08:24)
[2018-01-10] MEDS: ENOXAPARIN 30 MG/0.3 ML SYG SC (08:26)
[2018-01-10] MEDS: LORAZEPAM 0.5 MG TAB PO (11:28)
[2018-01-10 11:36] LABS: ABNORMAL IP MESSAGE 1; HEMATOCRIT 27.8 % (42.0-52.0); HEMOGLOBIN 8.6 g/dl (14.0-18.0); MEAN CORPUSCULAR HEMOGLOBIN 29.9 pg (29.0-33.0); MEAN CORPUSCULAR HGB CONC 30.9 g/dl (32.0-37.0); MEAN CORPUSCULAR VOLUME 96.5 fl (82.0-101.0); MEAN PLATELET VOLUME 9.5 fl (7.4-10.4); PLATELET COUNT 165 10^3/UL (140-415); POSITIVE DIFF @See below; RED BLOOD COUNT 2.88 10^6/ul (4.70-6.10); RED CELL DISTRIBUTION WIDTH 17.3 % (11.5-14.5)
[2018-01-10 11:36] LABS: WHITE BLOOD COUNT 6.7 10^3/ul (4.8-10.8)
[2018-01-10 11:39] LABS: ADD MAN DIFF? YES
[2018-01-10 11:58] LABS: ALANINE AMINOTRANSFERASE 33 IU/L (13-69); ALKALINE PHOSPHATASE 75 IU/L (42-121); ANION GAP 13 (8-16); ASPARTATE AMINO TRANSFERASE 31 IU/L (15-46); BLOOD UREA NITROGEN 38 mg/dl (7-20); CALCIUM 8.9 mg/dl (8.4-10.2); CARBON DIOXIDE 32 mmol/L (21-31); CHLORIDE 105 mmol/L (97-110); CREATININE 1.67 mg/dl (0.61-1.24); GLUCOSE 160 mg/dl (70-220); POTASSIUM 3.8 mmol/L (3.5-5.1); SODIUM 146 mmol/L (135-144)
[2018-01-10 12:40] LABS: BAND NEUTROPHILS #M 0.3 10^3/ul (0.0-0.6); BAND NEUTROPHILS % (M) 5 % (0-4); LYMPHOCYTES % (M) 1 % (15-51); MONOCYTES % (M) 1 % (0-11); OVALOCYTES 1+ (0-0); PLATELET ESTIMATE NORMAL; POIKILOCYTOSIS 1+ (0-0); POLYCHROMASIA 1+ (0-0); SCHISTOCYTES 1+ (0-0); SEG NEUT #M 6.3 10^3/ul (1.6-7.5); SEGMENTED NEUTROPHILS (M) % 93 % (39-77); SMUDGE%M 2 % (0-0); TARGET CELLS 1+ (0-0)
[2018-01-11] MEDS: METHYLPREDNISOLONE 125 MG INJ IV ×4 (01:08→17:22)
[2018-01-11] MEDS: LORAZEPAM 0.5 MG TAB PO ×2 (09:25→16:11)
[2018-01-11] MEDS: FAMOTIDINE 20 MG INJ IV (09:26)
[2018-01-11] MEDS: morphine 2 MG INJ IV ×2 (09:26→16:11)
[2018-01-11] MEDS: ENOXAPARIN 30 MG/0.3 ML SYG SC (09:27)
[2018-01-11] MEDS ORDERED: BISACODYL 10 MG SUPP PR (17:30)
[2018-01-11] MEDS ORDERED: DOCUSATE SODIUM 100 MG CAP PO (17:30)
[2018-01-11] MEDS: hydrALAzine 20 MG INJ IV (19:51)
[2018-01-11] MEDS: LORAZEPAM 2 MG INJ IV (20:39)
[2018-01-11] MEDS: TAMSULOSIN (SR) 0.4 MG CAP PO (20:39)
[2018-01-11] MEDS: METOPROLOL 25 MG TAB PO (20:40)
[2018-01-11] MEDS: LEVALBUTEROL (NEB) 0.63 MG/3 ML AMP HHN (21:27)
[2018-01-12] MEDS: METHYLPREDNISOLONE 125 MG INJ IV ×4 (00:15→17:03)
[2018-01-12] MEDS: hydrALAzine 20 MG INJ IV ×3 (00:15→21:25)
[2018-01-12] MEDS: morphine 2 MG INJ IV ×3 (00:22→15:56)
[2018-01-12] MEDS: METOPROLOL 5 MG INJ IV ×3 (01:40→12:08)
[2018-01-12] MEDS: NITROGLYCERIN 2% 1 GM OINT PKT TD ×2 (01:41→06:13)
[2018-01-12] MEDS: LEVALBUTEROL (NEB) 0.63 MG/3 ML AMP HHN ×4 (02:20→20:17)
[2018-01-12] MEDS: LORAZEPAM 2 MG INJ IV ×3 (04:21→19:47)
[2018-01-12 07:01] LABS: AADO2 Arterial 348.8 mmHg (7.0-24.0); Allen Test ACCEPTAB; Arterial Base Excess 2.1 mmol/L (-3.0-3); Arterial Blood Gas Oxygen Sat 90.8 mmHG (95.0-100.0); Arterial COHb 0.3 % (0.0-3.0); Arterial Fraction of Oxyhgb 90.3 % (93.0-99.0); Arterial HCO3 27.5 mmol/L (22.0-26.0); Arterial MetHb 0.3 % (0.0-1.5); Arterial Total Hemglobin 12.2 g/dl (12.0-18.0); MODE HFNC; Site Left Radial
[2018-01-12] MEDS: ASPIRIN 81 MG TAB PO (08:19)
[2018-01-12] MEDS: SENNA TAB PO (08:25)
[2018-01-12] MEDS: FINASTERIDE 5 MG TAB PO (08:25)
[2018-01-12] MEDS: CLOPIDOGREL 75 MG TAB PO (08:26)
[2018-01-12] MEDS: METOPROLOL 25 MG TAB PO (08:42)
[2018-01-12] MEDS: FUROSEMIDE 20 MG INJ IV (08:52)
[2018-01-12] MEDS: FAMOTIDINE 20 MG INJ IV (08:52)
[2018-01-12] MEDS: ENOXAPARIN 30 MG/0.3 ML SYG SC (08:54)
[2018-01-12] MEDS ORDERED: DIGOXIN 500 MCG INJ IV (09:00)
[2018-01-12] MEDS ORDERED: FUROSEMIDE 20 MG TAB PO (09:00)
[2018-01-12] MEDS: DIGOXIN 500 MCG INJ IV (09:08)
[2018-01-12] MEDS: NITROGLYCERIN 50 MG/D5W (PMX) 250 ML IV ×4 (09:23→21:07)
[2018-01-12 10:14] LABS: ADD MAN DIFF? NO
[2018-01-12 10:15] LABS: ABNORMAL IP MESSAGE 1; BASOPHILS % 0.1 % (0.0-2.0); HEMATOCRIT 33.5 % (42.0-52.0); HEMOGLOBIN 10.3 g/dl (14.0-18.0); LYMPHOCYTES # 0.2 10^3/ul (0.8-2.9); LYMPHOCYTES % 1.8 % (15.0-51.0); MEAN CORPUSCULAR HEMOGLOBIN 29.3 pg (29.0-33.0); MEAN CORPUSCULAR HGB CONC 30.7 g/dl (32.0-37.0); MEAN CORPUSCULAR VOLUME 95.4 fl (82.0-101.0); MEAN PLATELET VOLUME 10.1 fl (7.4-10.4); MONOCYTE # 0.6 10^3/ul (0.3-0.9); MONOCYTES % 4.2 % (0.0-11.0); NEUTROPHIL # 12.2 10^3/ul (1.6-7.5); NEUTROPHILS % 92.9 % (39.0-77.0); NUCLEATED RED BLOOD CELLS% 0.2 /100WBC (0.0-0.0); PLATELET COUNT 199 10^3/UL (140-415); POSITIVE DIFF @See below; RED BLOOD COUNT 3.51 10^6/ul (4.70-6.10); RED CELL DISTRIBUTION WIDTH 17.8 % (11.5-14.5)
[2018-01-12 10:15] LABS: WHITE BLOOD COUNT 13.1 10^3/ul (4.8-10.8)
[2018-01-12 10:31] LABS: ANION GAP 21 (8-16); BLOOD UREA NITROGEN 53 mg/dl (7-20); CALCIUM 9.4 mg/dl (8.4-10.2); CARBON DIOXIDE 27 mmol/L (21-31); CHLORIDE 105 mmol/L (97-110); CREATININE 1.51 mg/dl (0.61-1.24); GLUCOSE 149 mg/dl (70-220); POTASSIUM 3.7 mmol/L (3.5-5.1); SODIUM 149 mmol/L (135-144)
[2018-01-12] MEDS: PIPER-TAZO 2.25 GM (PMX) 50 ML IVPB ×3 (10:34→21:09)
[2018-01-12] MEDS: FUROSEMIDE 40 MG INJ IV (12:08)
[2018-01-12] MEDS: TAMSULOSIN (SR) 0.4 MG CAP PO (20:20)
[2018-01-12] MEDS: METOPROLOL 50 MG TAB NGT (20:20)
[2018-01-13] MEDS: METHYLPREDNISOLONE 125 MG INJ IV ×4 (00:11→17:11)
[2018-01-13] MEDS: NITROGLYCERIN 50 MG/D5W (PMX) 250 ML IV ×7 (00:12→21:07)
[2018-01-13] MEDS: LEVALBUTEROL (NEB) 0.63 MG/3 ML AMP HHN ×4 (02:06→20:29)
[2018-01-13 05:16] LABS: ADD MAN DIFF? NO
[2018-01-13] MEDS: PIPER-TAZO 2.25 GM (PMX) 50 ML IVPB ×3 (05:19→21:08)
[2018-01-13 05:25] LABS: ABNORMAL IP MESSAGE 1; BASOPHILS % 0.1 % (0.0-2.0); HEMATOCRIT 30.5 % (42.0-52.0); HEMOGLOBIN 9.5 g/dl (14.0-18.0); LYMPHOCYTES # 0.2 10^3/ul (0.8-2.9); LYMPHOCYTES % 1.7 % (15.0-51.0); MEAN CORPUSCULAR HEMOGLOBIN 29.5 pg (29.0-33.0); MEAN CORPUSCULAR HGB CONC 31.1 g/dl (32.0-37.0); MEAN CORPUSCULAR VOLUME 94.7 fl (82.0-101.0); MEAN PLATELET VOLUME 9.7 fl (7.4-10.4); MONOCYTE # 0.6 10^3/ul (0.3-0.9); MONOCYTES % 4.7 % (0.0-11.0); NEUTROPHIL # 11.3 10^3/ul (1.6-7.5); NEUTROPHILS % 92.8 % (39.0-77.0); NUCLEATED RED BLOOD CELLS% 0.2 /100WBC (0.0-0.0); PLATELET COUNT 178 10^3/UL (140-415); POSITIVE DIFF @See below; RED BLOOD COUNT 3.22 10^6/ul (4.70-6.10); RED CELL DISTRIBUTION WIDTH 17.5 % (11.5-14.5)
[2018-01-13 05:25] LABS: WHITE BLOOD COUNT 12.1 10^3/ul (4.8-10.8)
[2018-01-13 06:00] LABS: ANION GAP 15 (8-16); BLOOD UREA NITROGEN 55 mg/dl (7-20); CALCIUM 8.6 mg/dl (8.4-10.2); CARBON DIOXIDE 31 mmol/L (21-31); CHLORIDE 105 mmol/L (97-110); CREATININE 1.65 mg/dl (0.61-1.24); GLUCOSE 142 mg/dl (70-220); POTASSIUM 3.3 mmol/L (3.5-5.1); SODIUM 148 mmol/L (135-144)
[2018-01-13] MEDS: LORAZEPAM 2 MG INJ IV ×2 (06:20→13:54)
[2018-01-13 07:53] LABS: MAGNESIUM 2.1 mg/dl (1.7-2.5)
[2018-01-13] MEDS: ASPIRIN 81 MG TAB PO (08:27)
[2018-01-13] MEDS: METOPROLOL 50 MG TAB NGT (08:28)
[2018-01-13] MEDS: FINASTERIDE 5 MG TAB PO (08:28)
[2018-01-13] MEDS: POTASSIUM CHLORIDE 50 ML IVPB ×2 (08:28→09:28)
[2018-01-13] MEDS: CLOPIDOGREL 75 MG TAB PO (08:28)
[2018-01-13] MEDS: FAMOTIDINE 20 MG INJ IV (08:28)
[2018-01-13] MEDS: FUROSEMIDE 20 MG INJ IV ×2 (08:28→17:11)
[2018-01-13] MEDS: SENNA TAB PO (08:40)
[2018-01-13] MEDS: ENOXAPARIN 30 MG/0.3 ML SYG SC (08:40)
[2018-01-13] MEDS: VALSARTAN 80 MG TAB NGT ×2 (10:16→20:09)
[2018-01-13] MEDS: DIGOXIN 500 MCG INJ IV (11:47)
[2018-01-13 14:33] LABS: CREATINE KINASE 39 IU/L (23-200)
[2018-01-13 14:47] LABS: CK INDEX 1.8; TROPONIN-I 0.025 ng/ml (0.00-0.12)
[2018-01-13 14:51] LABS: CK-MB 0.72 ng/ml (0.0-2.4)
[2018-01-13] MEDS: hydrALAzine 20 MG INJ IV (17:55)
[2018-01-13 18:14] LABS: CREATINE KINASE 38 IU/L (23-200)
[2018-01-13 18:28] LABS: CK INDEX 1.8; TROPONIN-I 0.029 ng/ml (0.00-0.12)
[2018-01-13 18:31] LABS: CK-MB 0.68 ng/ml (0.0-2.4)
[2018-01-13] MEDS: TAMSULOSIN (SR) 0.4 MG CAP PO (20:07)
[2018-01-13] MEDS: METOPROLOL 25 MG TAB NGT (20:08)
[2018-01-13] MEDS: morphine 2 MG INJ IV (20:19)
[2018-01-14] MEDS: LEVALBUTEROL (NEB) 0.63 MG/3 ML AMP HHN ×4 (01:01→20:33)
[2018-01-14] MEDS: METHYLPREDNISOLONE 125 MG INJ IV ×4 (01:38→18:32)
[2018-01-14] MEDS: hydrALAzine 20 MG INJ IV ×2 (04:03→21:30)
[2018-01-14] MEDS: LORAZEPAM 2 MG INJ IV (04:04)
[2018-01-14] MEDS: PIPER-TAZO 2.25 GM (PMX) 50 ML IVPB (05:53)
[2018-01-14] MEDS: NITROGLYCERIN 50 MG/D5W (PMX) 250 ML IV ×2 (05:53→08:40)
[2018-01-14] MEDS: FUROSEMIDE 20 MG INJ IV ×2 (05:54→18:32)
[2018-01-14 06:04] LABS: ADD MAN DIFF? NO
[2018-01-14 06:24] LABS: ABNORMAL IP MESSAGE 1; BASOPHILS % 0.1 % (0.0-2.0); HEMATOCRIT 29.6 % (42.0-52.0); HEMOGLOBIN 9.3 g/dl (14.0-18.0); LYMPHOCYTES # 0.2 10^3/ul (0.8-2.9); LYMPHOCYTES % 1.3 % (15.0-51.0); MEAN CORPUSCULAR HEMOGLOBIN 29.2 pg (29.0-33.0); MEAN CORPUSCULAR HGB CONC 31.4 g/dl (32.0-37.0); MEAN CORPUSCULAR VOLUME 93.1 fl (82.0-101.0); MEAN PLATELET VOLUME 10.4 fl (7.4-10.4); MONOCYTE # 0.5 10^3/ul (0.3-0.9); MONOCYTES % 3.1 % (0.0-11.0); NEUTROPHIL # 13.7 10^3/ul (1.6-7.5); NEUTROPHILS % 93.2 % (39.0-77.0); NUCLEATED RED BLOOD CELLS% 0.2 /100WBC (0.0-0.0); PLATELET COUNT 162 10^3/UL (140-415); POSITIVE DIFF @See below; RED BLOOD COUNT 3.18 10^6/ul (4.70-6.10); RED CELL DISTRIBUTION WIDTH 17.6 % (11.5-14.5)
[2018-01-14 06:24] LABS: WHITE BLOOD COUNT 14.7 10^3/ul (4.8-10.8)
[2018-01-14 06:40] LABS: CHLORIDE 103 mmol/L (97-110)
[2018-01-14 07:06] LABS: ANION GAP 16 (8-16); BLOOD UREA NITROGEN 58 mg/dl (7-20); CALCIUM 8.6 mg/dl (8.4-10.2); CARBON DIOXIDE 31 mmol/L (21-31); CREATININE 1.84 mg/dl (0.61-1.24); GLUCOSE 170 mg/dl (70-220); POTASSIUM 3.6 mmol/L (3.5-5.1); SODIUM 146 mmol/L (135-144)
[2018-01-14] MEDS: DILTIAZEM 25 MG INJ IV (08:41)
[2018-01-14] MEDS: DIGOXIN 500 MCG INJ IV (09:32)
[2018-01-14] MEDS: SENNA TAB PO (09:37)
[2018-01-14] MEDS: VALSARTAN 80 MG TAB NGT ×2 (09:37→21:23)
[2018-01-14] MEDS: FINASTERIDE 5 MG TAB PO (09:37)
[2018-01-14] MEDS: ASPIRIN 81 MG TAB PO (09:37)
[2018-01-14] MEDS: CLOPIDOGREL 75 MG TAB PO (09:38)
[2018-01-14] MEDS: METOPROLOL 25 MG TAB NGT ×3 (09:38→22:15)
[2018-01-14] MEDS: ENOXAPARIN 30 MG/0.3 ML SYG SC (09:41)
[2018-01-14] MEDS: FAMOTIDINE 20 MG INJ IV (09:44)
[2018-01-14] MEDS: LABETALOL HCL 20MG INJ IV (09:45)
[2018-01-14] MEDS: LABETALOL 200 MG in SOD CHLORIDE 0.9% 160 ML IV ×5 (09:45→22:11)
[2018-01-14] MEDS ORDERED: VANCOMYCIN IV PER PHARMACY XX (14:30)
[2018-01-14] MEDS: MEROPENEM 500MG/50 ML (PMX) 50 ML IVPB (16:15)
[2018-01-14] MEDS: VANCOMYCIN 1.25 GM in SOD CHLORIDE 0.9% 250 ML IVPB (17:01)
[2018-01-14] MEDS: TAMSULOSIN (SR) 0.4 MG CAP PO (21:23)
[2018-01-14] MEDS ORDERED: niCARdipine-NS 0.1MG/ML DRIP 200 ML IV (22:00)
[2018-01-15] MEDS: MEROPENEM 500MG/50 ML (PMX) 50 ML IVPB ×3 (00:16→20:57)
[2018-01-15] MEDS: METHYLPREDNISOLONE 125 MG INJ IV ×5 (00:17→23:52)
[2018-01-15] MEDS: ACETYLCYSTEINE 20% 4 ML VIAL NEB ×4 (01:08→19:36)
[2018-01-15] MEDS: LEVALBUTEROL (NEB) 0.63 MG/3 ML AMP HHN ×4 (01:08→19:36)
[2018-01-15 05:19] LABS: ADD MAN DIFF? NO
[2018-01-15 05:21] LABS: ABNORMAL IP MESSAGE 1; BASOPHILS % 0.2 % (0.0-2.0); HEMATOCRIT 31.7 % (42.0-52.0); HEMOGLOBIN 9.9 g/dl (14.0-18.0); LYMPHOCYTES # 0.2 10^3/ul (0.8-2.9); LYMPHOCYTES % 1.4 % (15.0-51.0); MEAN CORPUSCULAR HEMOGLOBIN 29.2 pg (29.0-33.0); MEAN CORPUSCULAR HGB CONC 31.2 g/dl (32.0-37.0); MEAN CORPUSCULAR VOLUME 93.5 fl (82.0-101.0); MEAN PLATELET VOLUME 10.4 fl (7.4-10.4); MONOCYTE # 0.3 10^3/ul (0.3-0.9); MONOCYTES % 2.3 % (0.0-11.0); NEUTROPHIL # 13.9 10^3/ul (1.6-7.5); NEUTROPHILS % 94.5 % (39.0-77.0); NUCLEATED RED BLOOD CELLS% 0.2 /100WBC (0.0-0.0); PLATELET COUNT 133 10^3/UL (140-415); POSITIVE DIFF @See below; RED BLOOD COUNT 3.39 10^6/ul (4.70-6.10); RED CELL DISTRIBUTION WIDTH 17.6 % (11.5-14.5)
[2018-01-15 05:21] LABS: WHITE BLOOD COUNT 14.7 10^3/ul (4.8-10.8)
[2018-01-15] MEDS: METOPROLOL 25 MG TAB NGT ×3 (05:28→21:37)
[2018-01-15] MEDS: FUROSEMIDE 20 MG INJ IV ×2 (05:29→18:14)
[2018-01-15 06:01] LABS: ALANINE AMINOTRANSFERASE 28 IU/L (13-69); ALBUMIN 2.7 g/dl (3.3-4.9); ALBUMIN/GLOBULIN RATIO 0.87; ALKALINE PHOSPHATASE 58 IU/L (42-121); ANION GAP 17 (8-16); ASPARTATE AMINO TRANSFERASE 20 IU/L (15-46); BILIRUBIN,INDIRECT 0.2 mg/dl (0-1.1); BILIRUBIN,TOTAL 0.2 mg/dl (0.2-1.3); BLOOD UREA NITROGEN 67 mg/dl (7-20); CALCIUM 8.5 mg/dl (8.4-10.2); CARBON DIOXIDE 29 mmol/L (21-31); CHLORIDE 105 mmol/L (97-110); CREATININE 1.93 mg/dl (0.61-1.24); GLUCOSE 134 mg/dl (70-220); POTASSIUM 3.7 mmol/L (3.5-5.1); SODIUM 147 mmol/L (135-144); TOTAL PROTEIN 5.8 g/dl (6.1-8.1)
[2018-01-15] MEDS: VALSARTAN 80 MG TAB NGT ×2 (10:16→20:57)
[2018-01-15] MEDS: FAMOTIDINE 20 MG INJ IV (10:16)
[2018-01-15] MEDS: ASPIRIN 81 MG TAB PO (10:16)
[2018-01-15] MEDS: CLOPIDOGREL 75 MG TAB PO (10:16)
[2018-01-15] MEDS: SENNA TAB PO (10:16)
[2018-01-15] MEDS: FINASTERIDE 5 MG TAB PO (10:16)
[2018-01-15] MEDS: ENOXAPARIN 30 MG/0.3 ML SYG SC (10:19)
[2018-01-15] MEDS: niCARdipine 25 MG in SOD CHLORIDE 0.9% 240 ML IV (20:35)
[2018-01-15] MEDS: TAMSULOSIN (SR) 0.4 MG CAP PO (20:57)
[2018-01-16] MEDS: LEVALBUTEROL (NEB) 0.63 MG/3 ML AMP HHN ×4 (02:03→19:33)
[2018-01-16] MEDS: ACETYLCYSTEINE 20% 4 ML VIAL NEB ×4 (02:03→19:30)
[2018-01-16] MEDS: VANCOMYCIN 1 GM 250 ML IVPB (04:10)
[2018-01-16] MEDS: METHYLPREDNISOLONE 125 MG INJ IV ×3 (06:15→17:26)
[2018-01-16] MEDS: FUROSEMIDE 20 MG INJ IV ×2 (06:15→17:27)
[2018-01-16] MEDS: METOPROLOL 25 MG TAB NGT ×3 (06:15→22:14)
[2018-01-16 06:53] LABS: ADD MAN DIFF? NO
[2018-01-16 07:35] LABS: ALANINE AMINOTRANSFERASE 23 IU/L (13-69); ALBUMIN 2.7 g/dl (3.3-4.9); ALBUMIN/GLOBULIN RATIO 0.87; ALKALINE PHOSPHATASE 55 IU/L (42-121); ANION GAP 18 (8-16); ASPARTATE AMINO TRANSFERASE 26 IU/L (15-46); BILIRUBIN,INDIRECT 0.2 mg/dl (0-1.1); BILIRUBIN,TOTAL 0.2 mg/dl (0.2-1.3); BLOOD UREA NITROGEN 77 mg/dl (7-20); CALCIUM 8.4 mg/dl (8.4-10.2); CARBON DIOXIDE 28 mmol/L (21-31); CHLORIDE 106 mmol/L (97-110); CREATININE 1.89 mg/dl (0.61-1.24); GLUCOSE 142 mg/dl (70-220); POTASSIUM 3.6 mmol/L (3.5-5.1); SODIUM 148 mmol/L (135-144); TOTAL PROTEIN 5.8 g/dl (6.1-8.1)
[2018-01-16 08:05] LABS: ABNORMAL IP MESSAGE 1; BASOPHILS % 0.2 % (0.0-2.0); HEMATOCRIT 33.3 % (42.0-52.0); HEMOGLOBIN 10.5 g/dl (14.0-18.0); LYMPHOCYTES # 0.3 10^3/ul (0.8-2.9); LYMPHOCYTES % 1.2 % (15.0-51.0); MEAN CORPUSCULAR HEMOGLOBIN 28.8 pg (29.0-33.0); MEAN CORPUSCULAR HGB CONC 31.5 g/dl (32.0-37.0); MEAN CORPUSCULAR VOLUME 91.5 fl (82.0-101.0); MEAN PLATELET VOLUME 10.4 fl (7.4-10.4); MONOCYTE # 0.4 10^3/ul (0.3-0.9); MONOCYTES % 1.7 % (0.0-11.0); NEUTROPHIL # 20.6 10^3/ul (1.6-7.5); NEUTROPHILS % 94.8 % (39.0-77.0); NUCLEATED RED BLOOD CELLS% 0.2 /100WBC (0.0-0.0); PLATELET COUNT 156 10^3/UL (140-415); POSITIVE DIFF @See below; RED BLOOD COUNT 3.64 10^6/ul (4.70-6.10); RED CELL DISTRIBUTION WIDTH 17.8 % (11.5-14.5)
[2018-01-16 08:05] LABS: WHITE BLOOD COUNT 21.7 10^3/ul (4.8-10.8)
[2018-01-16] MEDS: FAMOTIDINE 20 MG INJ IV (08:27)
[2018-01-16] MEDS: FINASTERIDE 5 MG TAB PO (08:27)
[2018-01-16] MEDS: CLOPIDOGREL 75 MG TAB PO (08:27)
[2018-01-16] MEDS: VALSARTAN 80 MG TAB NGT ×2 (08:27→21:18)
[2018-01-16] MEDS: SENNA TAB PO (08:28)
[2018-01-16] MEDS: ASPIRIN 81 MG TAB PO (08:28)
[2018-01-16] MEDS: MEROPENEM 500MG/50 ML (PMX) 50 ML IVPB ×2 (08:28→21:28)
[2018-01-16] MEDS: ENOXAPARIN 30 MG/0.3 ML SYG SC (08:38)
[2018-01-16] MEDS: hydrALAzine 20 MG INJ IV ×2 (11:27→16:27)
[2018-01-16] MEDS: CLONIDINE 0.1 MG/24 HR PATCH TRANSDERM (14:22)
[2018-01-16] MEDS: morphine 2 MG INJ IV (16:38)
[2018-01-16] MEDS: CLONIDINE 0.3 MG/24 HR PATCH TRANSDERM (17:51)
[2018-01-16] MEDS: NITROGLYCERIN 0.1 MG/HR PATCH TRANSDERM (17:51)
[2018-01-16] MEDS: TAMSULOSIN (SR) 0.4 MG CAP PO (21:18)
[2018-01-17] MEDS: hydrALAzine 20 MG INJ IV ×6 (00:09→19:59)
[2018-01-17] MEDS: METHYLPREDNISOLONE 125 MG INJ IV ×4 (00:16→17:24)
[2018-01-17] MEDS: ACETYLCYSTEINE 20% 4 ML VIAL NEB ×4 (01:33→19:52)
[2018-01-17] MEDS: LEVALBUTEROL (NEB) 0.63 MG/3 ML AMP HHN ×4 (01:33→19:52)
[2018-01-17] MEDS: morphine 2 MG INJ IV ×2 (02:37→15:26)
[2018-01-17] MEDS: METOPROLOL 25 MG TAB NGT ×3 (06:23→22:00)
[2018-01-17] MEDS: FUROSEMIDE 20 MG INJ IV ×2 (06:25→17:36)
[2018-01-17 06:35] LABS: ADD MAN DIFF? NO
[2018-01-17 06:37] LABS: ABNORMAL IP MESSAGE 1; BASOPHIL # 0.1 10^3/ul (0.0-0.1); BASOPHILS % 0.2 % (0.0-2.0); HEMATOCRIT 38.5 % (42.0-52.0); HEMOGLOBIN 12.4 g/dl (14.0-18.0); LYMPHOCYTES # 0.2 10^3/ul (0.8-2.9); LYMPHOCYTES % 0.9 % (15.0-51.0); MEAN CORPUSCULAR HGB CONC 32.2 g/dl (32.0-37.0); MEAN PLATELET VOLUME 10.3 fl (7.4-10.4); MONOCYTE # 0.5 10^3/ul (0.3-0.9); MONOCYTES % 2.2 % (0.0-11.0); NEUTROPHIL # 22.9 10^3/ul (1.6-7.5); NEUTROPHILS % 93.2 % (39.0-77.0); NUCLEATED RED BLOOD CELLS # 0.1 10^3/ul (0.0-0.0); NUCLEATED RED BLOOD CELLS% 0.3 /100WBC (0.0-0.0); PLATELET COUNT 146 10^3/UL (140-415); POSITIVE DIFF @See below; RED BLOOD COUNT 4.14 10^6/ul (4.70-6.10); RED CELL DISTRIBUTION WIDTH 18.6 % (11.5-14.5)
[2018-01-17 06:37] LABS: WHITE BLOOD COUNT 24.5 10^3/ul (4.8-10.8)
[2018-01-17 07:00] LABS: ANION GAP 17 (8-16); BLOOD UREA NITROGEN 83 mg/dl (7-20); CALCIUM 8.5 mg/dl (8.4-10.2); CARBON DIOXIDE 31 mmol/L (21-31); CHLORIDE 106 mmol/L (97-110); CREATININE 1.97 mg/dl (0.61-1.24); GLUCOSE 234 mg/dl (70-220); SODIUM 151 mmol/L (135-144)
[2018-01-17] MEDS: FAMOTIDINE 20 MG INJ IV (08:17)
[2018-01-17] MEDS: SENNA TAB PO (08:18)
[2018-01-17] MEDS: ASPIRIN 81 MG TAB PO (08:18)
[2018-01-17] MEDS: FINASTERIDE 5 MG TAB PO (08:18)
[2018-01-17] MEDS: VALSARTAN 80 MG TAB NGT ×2 (08:18→21:33)
[2018-01-17] MEDS: NITROGLYCERIN 0.1 MG/HR PATCH TRANSDERM (08:18)
[2018-01-17] MEDS: CLOPIDOGREL 75 MG TAB PO (08:18)
[2018-01-17] MEDS: ENOXAPARIN 30 MG/0.3 ML SYG SC (08:24)
[2018-01-17] MEDS: MEROPENEM 500MG/50 ML (PMX) 50 ML IVPB ×2 (10:23→21:32)
[2018-01-17] MEDS: POTASSIUM CHLORIDE 100 ML IVPB (12:59)
[2018-01-17 14:35] LABS: VANCOMYCIN,TROUGH 15.3 ug/ml (10.0-20.0)
[2018-01-17] MEDS: VANCOMYCIN 1 GM 250 ML IVPB (15:26)
[2018-01-17] MEDS: TAMSULOSIN (SR) 0.4 MG CAP PO (21:33)
[2018-01-17] MEDS: ACETAMINOPHEN 325 MG TAB PO (21:33)
[2018-01-18] MEDS: METHYLPREDNISOLONE 125 MG INJ IV ×4 (01:17→17:48)
[2018-01-18] MEDS: hydrALAzine 20 MG INJ IV ×4 (01:17→16:44)
[2018-01-18] MEDS: ACETYLCYSTEINE 20% 4 ML VIAL NEB ×4 (01:49→19:43)
[2018-01-18] MEDS: LEVALBUTEROL (NEB) 0.63 MG/3 ML AMP HHN ×4 (01:49→19:43)
[2018-01-18] MEDS: FUROSEMIDE 20 MG INJ IV (05:37)
[2018-01-18] MEDS: METOPROLOL 25 MG TAB NGT ×3 (06:00→22:11)
[2018-01-18 08:00] LABS: ABNORMAL IP MESSAGE 1; HEMOGLOBIN 10.9 g/dl (14.0-18.0); MEAN CORPUSCULAR HEMOGLOBIN 29.1 pg (29.0-33.0); MEAN CORPUSCULAR HGB CONC 32.1 g/dl (32.0-37.0); MEAN CORPUSCULAR VOLUME 90.9 fl (82.0-101.0); MEAN PLATELET VOLUME 10.9 fl (7.4-10.4); NUCLEATED RED BLOOD CELLS% 0.2 /100WBC (0.0-0.0); PLATELET COUNT 119 10^3/UL (140-415); POSITIVE DIFF @See below; RED BLOOD COUNT 3.74 10^6/ul (4.70-6.10); RED CELL DISTRIBUTION WIDTH 18.7 % (11.5-14.5)
[2018-01-18 08:00] LABS: WHITE BLOOD COUNT 28.4 10^3/ul (4.8-10.8)
[2018-01-18 08:18] LABS: ANION GAP 16 (8-16); BLOOD UREA NITROGEN 80 mg/dl (7-20); CALCIUM 8.3 mg/dl (8.4-10.2); CARBON DIOXIDE 31 mmol/L (21-31); CHLORIDE 108 mmol/L (97-110); CREATININE 1.76 mg/dl (0.61-1.24); GLUCOSE 168 mg/dl (70-220); SODIUM 152 mmol/L (135-144)
[2018-01-18 08:21] LABS: ADD MAN DIFF? YES
[2018-01-18 08:34] LABS: INR 1.35; PROTIME 16.9 Sec (11.9-14.9); PT RATIO 1.3
[2018-01-18 08:37] LABS: PARTIAL THROMBOPLASTIN TIME 32.3 Sec (25.0-35.0)
[2018-01-18 08:39] LABS: POTASSIUM 2.5 mmol/L (3.5-5.1)
[2018-01-18] MEDS: ASPIRIN 81 MG TAB PO ×2 (09:00→10:54)
[2018-01-18] MEDS: CLOPIDOGREL 75 MG TAB PO ×2 (09:00→10:55)
[2018-01-18] MEDS: VALSARTAN 80 MG TAB NGT ×3 (09:00→20:19)
[2018-01-18] MEDS: SENNA TAB PO ×2 (09:00→10:55)
[2018-01-18] MEDS: MEROPENEM 500MG/50 ML (PMX) 50 ML IVPB ×2 (09:53→20:20)
[2018-01-18] MEDS: FAMOTIDINE 20 MG INJ IV (09:53)
[2018-01-18] MEDS: POTASSIUM CHLORIDE 20 MEQ POWDER FOR ORAL SOLN GTB (09:54)
[2018-01-18] MEDS: NITROGLYCERIN 0.1 MG/HR PATCH TRANSDERM (09:55)
[2018-01-18] MEDS: ENOXAPARIN 30 MG/0.3 ML SYG SC (10:01)
[2018-01-18] MEDS: FINASTERIDE 5 MG TAB PO ×2 (10:02→10:55)
[2018-01-18 10:32] LABS: ANISOCYTOSIS 1+ (0-0); ERYTHROBLAST% (NRBC) (M) 3 % (0-0); HYPOCHROMASIA 2+ (0-0); METAMYELOCYTES #M 0.2 10^3/ul (0.0-0.0); METAMYELOCYTES %M 1 % (0-0); MONOCYTE #M 0.2 10^3/ul (0.3-0.9); MONOCYTES % (M) 1 % (0-11); PLATELET ESTIMATE DECREASED; POLYCHROMASIA 3+ (0-0); SEGMENTED NEUTROPHILS (M) % 98 % (39-77); SMUDGE%M 1 % (0-0)
[2018-01-18] MEDS: POTASSIUM CHLORIDE 100 ML IVPB ×2 (10:54→11:42)
[2018-01-18 18:50] LABS: ANION GAP 12 (8-16); BLOOD UREA NITROGEN 79 mg/dl (7-20); CALCIUM 8.2 mg/dl (8.4-10.2); CARBON DIOXIDE 33 mmol/L (21-31); CHLORIDE 109 mmol/L (97-110); CREATININE 1.89 mg/dl (0.61-1.24); GLUCOSE 161 mg/dl (70-220); POTASSIUM 3.4 mmol/L (3.5-5.1); SODIUM 151 mmol/L (135-144)
[2018-01-18] MEDS: TAMSULOSIN (SR) 0.4 MG CAP PO (20:20)
[2018-01-18] MEDS: ACETAMINOPHEN 325 MG TAB PO (20:20)
[2018-01-19] MEDS: METHYLPREDNISOLONE 125 MG INJ IV ×5 (00:52→22:17)
[2018-01-19] MEDS: LEVALBUTEROL (NEB) 0.63 MG/3 ML AMP HHN ×4 (01:39→20:08)
[2018-01-19] MEDS: ACETYLCYSTEINE 20% 4 ML VIAL NEB ×4 (01:39→20:08)
[2018-01-19] MEDS: VANCOMYCIN 750 MG in DEXTROSE 5% 150 ML IVPB (04:01)
[2018-01-19] MEDS: METOPROLOL 25 MG TAB NGT ×3 (05:14→22:18)
[2018-01-19] MEDS: FUROSEMIDE 20 MG INJ IV (08:39)
[2018-01-19] MEDS: FINASTERIDE 5 MG TAB PO (08:39)
[2018-01-19] MEDS: CLOPIDOGREL 75 MG TAB PO (08:39)
[2018-01-19] MEDS: SENNA TAB PO (08:39)
[2018-01-19] MEDS: ASPIRIN 81 MG TAB PO (08:39)
[2018-01-19] MEDS: FAMOTIDINE 20 MG INJ IV (08:39)
[2018-01-19] MEDS: VALSARTAN 80 MG TAB NGT ×2 (08:41→21:05)
[2018-01-19] MEDS: ENOXAPARIN 30 MG/0.3 ML SYG SC (08:58)
[2018-01-19 09:21] LABS: ANION GAP 13 (8-16); BLOOD UREA NITROGEN 89 mg/dl (7-20); CARBON DIOXIDE 33 mmol/L (21-31); CHLORIDE 111 mmol/L (97-110); CREATININE 1.71 mg/dl (0.61-1.24); GLUCOSE 176 mg/dl (70-220); MAGNESIUM 2.3 mg/dl (1.7-2.5); POTASSIUM 3.6 mmol/L (3.5-5.1); SODIUM 153 mmol/L (135-144)
[2018-01-19] MEDS: NITROGLYCERIN 0.1 MG/HR PATCH TRANSDERM (09:25)
[2018-01-19] MEDS: MEROPENEM 500MG/50 ML (PMX) 50 ML IVPB ×2 (09:25→21:04)
[2018-01-19 09:39] LABS: MAGNESIUM 2.3 mg/dl (1.7-2.5)
[2018-01-19] MEDS: POTASSIUM CHLORIDE 10 MEQ in DEXTROSE 5% 1,000 ML IV ×2 (12:25→14:30)
[2018-01-19] MEDS: TAMSULOSIN (SR) 0.4 MG CAP PO (21:05)
[2018-01-19] MEDS: ACETAMINOPHEN 325 MG TAB PO (21:05)
[2018-01-19] MEDS: LORAZEPAM 2 MG INJ IV (22:17)
[2018-01-20] MEDS: POTASSIUM CHLORIDE 10 MEQ in DEXTROSE 5% 1,000 ML IV ×2 (01:22→06:00)
[2018-01-20] MEDS: ACETYLCYSTEINE 20% 4 ML VIAL NEB ×4 (02:05→20:00)
[2018-01-20] MEDS: LEVALBUTEROL (NEB) 0.63 MG/3 ML AMP HHN ×4 (02:05→20:00)
[2018-01-20] MEDS: METOPROLOL 25 MG TAB NGT ×2 (05:56→14:14)
[2018-01-20] MEDS: METHYLPREDNISOLONE 125 MG INJ IV ×2 (05:56→14:13)
[2018-01-20] MEDS: NITROGLYCERIN 0.1 MG/HR PATCH TRANSDERM (08:56)
[2018-01-20] MEDS: FAMOTIDINE 20 MG INJ IV (08:57)
[2018-01-20] MEDS: ASPIRIN 81 MG TAB PO (08:57)
[2018-01-20] MEDS: FUROSEMIDE 20 MG INJ IV (08:57)
[2018-01-20] MEDS: FINASTERIDE 5 MG TAB PO (08:57)
[2018-01-20] MEDS: SENNA TAB PO (08:57)
[2018-01-20] MEDS: CLOPIDOGREL 75 MG TAB PO (08:57)
[2018-01-20] MEDS: ENOXAPARIN 30 MG/0.3 ML SYG SC (09:11)
[2018-01-20] MEDS: MEROPENEM 500MG/50 ML (PMX) 50 ML IVPB (09:12)
[2018-01-20 09:59] LABS: WHITE BLOOD COUNT 40.2 10^3/ul (4.8-10.8)
[2018-01-20 09:59] LABS: ABNORMAL IP MESSAGE 1; HEMOGLOBIN 9.6 g/dl (14.0-18.0); MEAN CORPUSCULAR HEMOGLOBIN 29.4 pg (29.0-33.0); MEAN CORPUSCULAR VOLUME 94.8 fl (82.0-101.0); MEAN PLATELET VOLUME 10.9 fl (7.4-10.4); NUCLEATED RED BLOOD CELLS% 0.2 /100WBC (0.0-0.0); PLATELET COUNT 81 10^3/UL (140-415); POSITIVE DIFF @See below; RED BLOOD COUNT 3.27 10^6/ul (4.70-6.10); RED CELL DISTRIBUTION WIDTH 19.2 % (11.5-14.5)
[2018-01-20 10:05] LABS: ADD MAN DIFF? YES
[2018-01-20 10:21] LABS: ANION GAP 13 (8-16); BLOOD UREA NITROGEN 88 mg/dl (7-20); CALCIUM 7.9 mg/dl (8.4-10.2); CARBON DIOXIDE 32 mmol/L (21-31); CHLORIDE 108 mmol/L (97-110); CREATININE 1.92 mg/dl (0.61-1.24); GLUCOSE 200 mg/dl (70-220); POTASSIUM 3.6 mmol/L (3.5-5.1); SODIUM 149 mmol/L (135-144)
[2018-01-20 10:45] LABS: ANISOCYTOSIS 1+ (0-0); BAND NEUTROPHILS % (M) 5 % (0-4); BURR CELLS 1+ (0-0); EOSINOPHILS % (M) 1 % (0-7); GIANT THROMBO% (M) 1 % (0-0); HYPOCHROMASIA 1+ (0-0); MONOCYTE #M 0.8 10^3/ul (0.3-0.9); MONOCYTES % (M) 2 % (0-11); PLATELET ESTIMATE DECREASED; POIKILOCYTOSIS 1+ (0-0); SEG NEUT #M 37.8 10^3/ul (1.6-7.5); SEGMENTED NEUTROPHILS (M) % 92 % (39-77); SMUDGE%M 2 % (0-0)
[2018-01-20] MEDS: DILTIAZEM 30 MG TAB PO (14:15)
[2018-01-20] MEDS ORDERED: ONDANSETRON (ODT) 4 MG TAB ODT (18:00)
[2018-01-20] MEDS ORDERED: LORAZEPAM (2 MG/ML PO SYG) SL (18:00)
[2018-01-20] MEDS ORDERED: morphine LIQ (20 MG/ML PO SYG) SL (18:00)
[2018-01-20] MEDS ORDERED: ACETAMINOPHEN 650 MG SUPP PR (18:00)
[2018-01-20] MEDS: morphine 2 MG INJ IV (18:29)
[2018-01-20] MEDS: LORAZEPAM 2 MG INJ IV (20:09)
[2018-01-21] MEDS: morphine 2 MG INJ IV ×5 (00:53→20:09)
[2018-01-21] MEDS: LEVALBUTEROL (NEB) 0.63 MG/3 ML AMP HHN ×4 (01:14→19:42)
[2018-01-21] MEDS: ACETYLCYSTEINE 20% 4 ML VIAL NEB ×4 (01:15→19:43)
[2018-01-21] MEDS: NITROGLYCERIN 0.1 MG/HR PATCH TRANSDERM (08:34)
[2018-01-21 13:11] LABS: ABNORMAL IP MESSAGE 1; HEMATOCRIT 31.2 % (42.0-52.0); HEMOGLOBIN 9.8 g/dl (14.0-18.0); MEAN CORPUSCULAR HEMOGLOBIN 29.8 pg (29.0-33.0); MEAN CORPUSCULAR HGB CONC 31.4 g/dl (32.0-37.0); MEAN CORPUSCULAR VOLUME 94.8 fl (82.0-101.0); MEAN PLATELET VOLUME 11.4 fl (7.4-10.4); NUCLEATED RED BLOOD CELLS% 0.3 /100WBC (0.0-0.0); PLATELET COUNT 69 10^3/UL (140-415); POSITIVE DIFF @See below; RED BLOOD COUNT 3.29 10^6/ul (4.70-6.10); RED CELL DISTRIBUTION WIDTH 18.7 % (11.5-14.5)
[2018-01-21 13:11] LABS: WHITE BLOOD COUNT 35.7 10^3/ul (4.8-10.8)
[2018-01-21 13:17] LABS: ADD MAN DIFF? YES
[2018-01-21 13:32] LABS: ANION GAP 14 (8-16); BLOOD UREA NITROGEN 92 mg/dl (7-20); CALCIUM 7.8 mg/dl (8.4-10.2); CARBON DIOXIDE 32 mmol/L (21-31); CHLORIDE 107 mmol/L (97-110); CREATININE 2.17 mg/dl (0.61-1.24); GLUCOSE 149 mg/dl (70-220); POTASSIUM 3.7 mmol/L (3.5-5.1); SODIUM 149 mmol/L (135-144)
[2018-01-21 13:58] LABS: ANISOCYTOSIS 1+ (0-0); BAND NEUTROPHILS #M 1.7 10^3/ul (0.0-0.6); BAND NEUTROPHILS % (M) 5 % (0-4); ERYTHROBLAST% (NRBC) (M) 2 % (0-0); HYPOCHROMASIA 1+ (0-0); MONOCYTES % (M) 3 % (0-11); MYELOCYTES #M 0.3 10^3/ul (0.0-0.0); MYELOCYTES % (M) 1 % (0-0); PLATELET ESTIMATE SIG DECREASED; POIKILOCYTOSIS 1+ (0-0); POLYCHROMASIA 1+ (0-0); SEG NEUT #M 33.1 10^3/ul (1.6-7.5); SEGMENTED NEUTROPHILS (M) % 91 % (39-77); SMUDGE%M 4 % (0-0); TARGET CELLS 1+ (0-0)
[2018-01-21] MEDS: LORAZEPAM 2 MG INJ IV (18:15)
[2018-01-22] MEDS: morphine 2 MG INJ IV ×5 (01:41→17:04)
[2018-01-22] MEDS: LORAZEPAM 2 MG INJ IV (01:52)
[2018-01-22] MEDS: LEVALBUTEROL (NEB) 0.63 MG/3 ML AMP HHN ×4 (02:41→20:51)
[2018-01-22] MEDS: ACETYLCYSTEINE 20% 4 ML VIAL NEB ×4 (02:41→20:51)
[2018-01-22] MEDS: NITROGLYCERIN 0.1 MG/HR PATCH TRANSDERM (10:50)
[2018-01-22] MEDS: ATROPINE SULFATE 1% 5ML SL ×2 (10:50→17:00)
[2018-01-22] MEDS: morphine (DRIP) 100 MG/100 ML 100 ML IV (20:35)
[2018-01-22] MEDS: SCOPOLAMINE 1.5 MG PATCH TRANSDERM (21:46)
[2018-01-23] MEDS: LEVALBUTEROL (NEB) 0.63 MG/3 ML AMP HHN ×3 (01:35→14:09)
[2018-01-23] MEDS: LORAZEPAM 2 MG INJ IV ×5 (02:02→22:32)
[2018-01-23] MEDS: ACETYLCYSTEINE 20% 4 ML VIAL NEB ×2 (02:28→09:48)
[2018-01-23] MEDS: ATROPINE SULFATE 1% 5ML SL (10:18)
[2018-01-23] MEDS ORDERED: LORAZEPAM 2 MG INJ IV (10:30)
[2018-01-23] MEDS: morphine (DRIP) 100 MG/100 ML 100 ML IV (10:53)
[2018-01-23] MEDS ORDERED: ACETYLCYSTEINE 20% 4 ML VIAL NEB (13:30)
[2018-01-24] MEDS: LORAZEPAM 2 MG INJ IV ×2 (04:37→09:33)
[2018-01-24] MEDS: morphine (DRIP) 100 MG/100 ML 100 ML IV (09:31)
== END 2018-01-24 13:12 | disposition expired | DRG 871 ==
LOC: MS4 21:17 → ICU 01-12 08:20 → TEL 01-16 01:32 → E/R 16:28 → MS1 01-21 13:42
PROVIDERS: Internal Medicine
DX: A41.9 Sepsis, unspecified organism (principal); J96.20 Acute and chronic respiratory failure, unspecified whether with hypoxia or hypercapnia; J18.9 Pneumonia, unspecified organism; I50.33 Acute on chronic diastolic (congestive) heart failure; G93.40 Encephalopathy, unspecified; J44.1 Chronic obstructive pulmonary disease with (acute) exacerbation; I16.1 Hypertensive emergency; N17.9 Acute kidney failure, unspecified; C34.90 Malignant neoplasm of unspecified part of unspecified bronchus or lung; I13.0 Hypertensive heart and chronic kidney disease with heart failure and stage 1 through stage 4 chronic kidney disease, or unspecified chronic kidney disease; C78.5 Secondary malignant neoplasm of large intestine and rectum; E44.0 Moderate protein-calorie malnutrition; R65.20 Severe sepsis without septic shock; I11.0 Hypertensive heart disease with heart failure; I48.91 Unspecified atrial fibrillation; Z68.20 Body mass index [BMI] 20.0-20.9, adult; N18.9 Chronic kidney disease, unspecified; Z66 Do not resuscitate; Z51.5 Encounter for palliative care; Z87.891 Personal history of nicotine dependence; I46.9 Cardiac arrest, cause unspecified
CPT/HCPCS: 36415; 36600; 71045; 80048; 80053; 80202; 81001; 82550; 82553; 82803; 83605; 83735; 84484; 85025; 85610; 85730; 87040; 87081; 87086; 92526; 92610; 93005; 93971; 94640; 94644; 94645; 96374; 96375; 99291-25